=== PATIENT | female | born 1955 | race Caucasian/White ===

== ENCOUNTER → 2016-07-15 | Outpatient (REF) | payer BC ==
[2016-07-15 11:35] LABS: MEAN CORPUSCULAR HEMOGLOBIN 31.1 pg (27.0-33.0); MEAN CORPUSCULAR HGB CONC 33.9 g/dl (32.0-36.5); RED CELL DISTRIBUTION WIDTH 12.9 % (11.5-14.5); WHITE BLOOD COUNT 6.5 K/mm3 (4.0-10.0)
[2016-07-15 11:46] LABS: ALBUMIN 3.9 GM/DL (3.2-5.2); ALBUMIN/GLOBULIN RATIO 1.26 (1.00-1.93); ALKALINE PHOSPHATASE 114 U/L (45-117); ALT/SGPT 36 U/L (12-78); ANION GAP 5 MEQ/L (8-16); AST/SGOT 23 U/L (15-37); BILIRUBIN,TOTAL 0.3 MG/DL (0.2-1.0); BLOOD UREA NITROGEN 19 MG/DL (7-18); CALCIUM LEVEL 8.7 MG/DL (8.8-10.2); CARBON DIOXIDE LEVEL 32 MEQ/L (21-32); CHLORIDE LEVEL 106 MEQ/L (98-107); CHOLESTEROL LEVEL 157 MG/DL (<200); CREATININE FOR GFR 0.91 MG/DL (0.55-1.02); GLOMERULAR FILTRATION RATE > 60.0 (>45); GLUCOSE, FASTING 122 MG/DL (80-110); POTASSIUM SERUM 4.9 MEQ/L (3.5-5.1); SODIUM LEVEL 143 MEQ/L (136-145); TRIGLYCERIDES LEVEL 217 MG/DL (<150)
== END ==
LOC: M SFHCPLAZ 08:26
PROVIDERS: ATTEND Internal Medicine
DX: E78.00 Pure hypercholesterolemia, unspecified (principal); K21.9 Gastro-esophageal reflux disease without esophagitis; E11.9 Type 2 diabetes mellitus without complications; E03.9 Hypothyroidism, unspecified

== ENCOUNTER → 2016-07-22 | Outpatient (REF) | payer BC | LOC: M SFHCPLAZ 08:59 | PROVIDERS: ATTEND Internal Medicine | DX: E11.9 Type 2 diabetes mellitus without complications (principal) ==

== ENCOUNTER 2016-09-18 14:25 | Emergency (ER) | payer BC ==
[~2016-09-18] VITALS: Ht 162.6 cm; Wt 108.0 kg
[2016-09-18] MEDS ORDERED: TRAM50TA2 (14:42)
[2016-09-18] MEDS ORDERED: SERT-138 (14:42)
[2016-09-18] MEDS ORDERED: LEVO100T5 (14:42)
[2016-09-18] MEDS ORDERED: ATOR40TA (14:42)
[2016-09-18] MEDS ORDERED: BENA40TA2 (14:42)
[2016-09-18] MEDS ORDERED: PROA1AER (14:42)
[2016-09-18] MEDS ORDERED: AMIT75TA (14:42)
[2016-09-18] MEDS ORDERED: METO-346 (14:42)
[2016-09-18] MEDS ORDERED: IPRATROPIUM 0.5MG/ALBUTEROL 2.5MG INH SOL UD 3ML (DUONEB)(J7620) NEB ONE (15:45)
[2016-09-18 16:13] LABS: VENOUS BASE EXCESS 0.3 (-2.0-2.0); VENOUS O2 SATURATION 66.7 % (60.0-80.0); VENOUS PARTIAL PRESSURE CO2 51.5 mmHg (38.0-50.0); VENOUS PARTIAL PRESSURE O2 35.3 mmHg (30.0-50.0); VENOUS TOTAL CO2 28.6 MEQ/L (24.0-28.0)
[2016-09-18 16:14] LABS: BASO % 0.1 % (0.0-1.0); EOS # 0.1 K/mm3 (0.0-0.50); EOS % 1.5 % (0.0-3.0); LARGE UNSTAINED CELL # 0.1 K/mm3 (0.0-0.4); LARGE UNSTAINED CELL % 1.2 % (0.0-4.0); LYMPH # 0.6 K/mm3 (1.5-4.5); LYMPH % 10.3 % (24.0-44.0); MEAN CORPUSCULAR HEMOGLOBIN 31.5 pg (27.0-33.0); MEAN CORPUSCULAR HGB CONC 34.1 g/dl (32.0-36.5); MEAN CORPUSCULAR VOLUME 92.3 fl (80.0-96.0); MONO # 0.4 K/mm3 (0.0-0.8); MONO % 7.4 % (0.0-5.0); NEUTROPHILS # 3.8 K/mm3 (1.8-7.7); NEUTROPHILS % 79.4 % (36.0-66.0); PLATELET COUNT, AUTOMATED 188 k/mm3 (150-450); RED CELL DISTRIBUTION WIDTH 12.2 % (11.5-14.5); WHITE BLOOD COUNT 4.8 K/mm3 (4.0-10.0)
[2016-09-18 16:39] LABS: ANION GAP 9 MEQ/L (8-16); BLOOD UREA NITROGEN 15 MG/DL (7-18); CALCIUM LEVEL 8.8 MG/DL (8.8-10.2); CARBON DIOXIDE LEVEL 28 MEQ/L (21-32); CHLORIDE LEVEL 102 MEQ/L (98-107); CREATININE FOR GFR 0.84 MG/DL (0.55-1.02); GLOMERULAR FILTRATION RATE > 60.0 (>45); GLUCOSE, FASTING 117 MG/DL (80-110); SODIUM LEVEL 139 MEQ/L (136-145)
--- NOTE | 2016-09-18 16:49 | REP ---
Clinical: Chest pain . Comparison: 10/28/2010 . Technique: PA and lateral. Findings: The mediastinum and cardiac silhouette are normal. The lung akers are clear and without acute consolidation, effusion, or pneumothorax. The skeletal structures are intact and normal. Impression: 1. No acute cardiopulmonary process. Signed by Nba Meeks MD 09/18/2016 04:41 P
[2016-09-18] MEDS ORDERED: ISOVUE-370 76% 100ML VIAL (Q9967) As Ordered ONE (17:15)
[2016-09-18] MEDS ORDERED: ONDANSETRON 4MG/2ML VIAL (J2405) IV ONE (17:45)
[2016-09-18] MEDS ORDERED: ACETAMINOPHEN 325 MG TAB PO ONE (17:45)
--- NOTE | 2016-09-18 18:20 | REP ---
Clinical: Shortness of breath and elevated D-dimer. Technique: Axial contrast enhanced images from the thoracic inlet to the upper abdomen using 100 ml Isovue 370 intravenous contrast material with multiplanar re-formations. Findings: Satisfactory enhancement of the pulmonary vasculature is achieved and no filling defects are identified to suggest pulmonary embolus. Further evaluation of the mediastinum demonstrates a 6.6 x 3.2 x 5.0 cm anterior mediastinal mass. No further axillary, hilar, or mediastinal adenopathy noted. Heart/pericardium and thoracic aorta are normal. The bilateral lung akers are well aerated and clear without consolidation pleural effusion or pneumothorax. Tracheobronchial tree is patent. No pulmonary parenchymal nodule or mass lesion is identified. Surrounding musculoskeletal structures intact Impression: 1. No evidence for pulmonary embolus. No acute pleuroparenchymal process. 2. A 6 cm anterior mediastinal mass. Differential diagnosis includes thymoma, normal thymic tissue and lymphoma. Correlation and follow-up is recommended. Signed by Nba Meeks MD 09/18/2016 05:46 P
[2016-09-18 19:41] VITALS: BP 135/63
--- NOTE | 2016-09-19 20:52 | ECGEPIP ---
Stationary ECG Study [facility] - ED Test Date: 2016-09-18 Pat Name: SETH KIM Department: Room: - Gender: F Round Boner: robb : 1955 Requested By: Rosales Renee Order Number: [id number] Reading MD: Celnea Celeste Measurements Intervals [place] Rate: 93 P: 37 AK: 173 QRS: -18 QRSD: 146 T: 51 QT: 394 QTc: 492 Interpretive Statements SINUS RHYTHM LEFT BUNDLE BRANCH BLOCK NO PRIOR FOR COMPARISON Electronically Signed On 09-19-2016 20:51:39 EDT by Celena Celeste
--- NOTE | 2016-09-20 13:03 | ED PDOC ---
Post-Departure Follow-Up radiology report faxed to Celena Abrams MD Sep 20, 2016 13:03
== END 2016-09-18 19:30 | disposition home or self-care (01) ==
LOC: M ED 18:11
DX: J06.9 Acute upper respiratory infection, unspecified (principal); R22.2 Localized swelling, mass and lump, trunk; I44.7 Left bundle-branch block, unspecified; E03.9 Hypothyroidism, unspecified; I25.10 Atherosclerotic heart disease of native coronary artery without angina pectoris; E11.9 Type 2 diabetes mellitus without complications; E78.5 Hyperlipidemia, unspecified; I25.2 Old myocardial infarction; Z79.899 Other long term (current) drug therapy; Z87.891 Personal history of nicotine dependence; Z95.5 Presence of coronary angioplasty implant and graft
CPT/HCPCS: 71020; 71275; 80048; 82550; 82553; 82803; 83880; 85025; 85379; 93005; 93041; 94640; 96374; 99284; J2405; Q9967

== ENCOUNTER → 2016-10-08 | Outpatient (CLI) | payer BC ==
[~2016-10-08] MED LIST: AMIT75TA; ATOR40TA; BENA40TA2; LEVO100T5; METO-346; PROA1AER; SERT-138; TRAM50TA2
--- NOTE | 2016-10-08 12:21 | REPMRS ---
Patient History The patient states she has not had a clinical breast exam in over a year. No known family history of cancer. Digital Woman Screen Mammo: October 08, 2016 - Exam #: [id number] Bilateral CC and MLO view(s) were taken. Technologist: Bianca Gayle, Technologist Prior study comparison: May 13, 2014, bilateral bilat screen digital mammo, performed at [facility] ([facility]). April 23, 2013, bilateral bilat screen digital mammo, performed at [facility] ([facility]). FINDINGS: There are scattered fibroglandular densities. There has been no change in the appearance of the mammogram from the prior studies. There is a mild amount of residual fibroglandular tissue which is fairly symmetric. There is no interval development of dominant mass, architectural distortion, or clustered microcalcification suggestive of malignancy. ASSESSMENT: BI-RADS/ACR category 1 mammogram. Negative. Recommendation Routine screening mammogram in 1 year (for women over age 40). This mammogram was interpreted with the aid of an FDA-approved computer-aided dectection system. Electronically Signed By: Kevin Voss MD 10/08/16 [id number]
== END ==
LOC: M WHC 10:56
PROVIDERS: ATTEND Internal Medicine
DX: Z12.31 Encounter for screening mammogram for malignant neoplasm of breast (principal); E11.9 Type 2 diabetes mellitus without complications; M85.80 Other specified disorders of bone density and structure, unspecified site

== ENCOUNTER → 2016-10-16 | Outpatient (CLI) | payer BC ==
[~2016-10-16] MED LIST changes: -ATOR40TA; +ATOR40TA PO; -BENA40TA2; +BENA40TA2 PO; -LEVO100T5; +LEVO100T5 PO; -METO-346; +METO-346 PO; +SERT-138 PO; -TRAM50TA2; +TRAM50TA2 PO
[2016-10-16 13:05] LABS: MEAN CORPUSCULAR HEMOGLOBIN 30.9 pg (27.0-33.0); MEAN CORPUSCULAR HGB CONC 33.8 g/dl (32.0-36.5); MEAN CORPUSCULAR VOLUME 91.5 fl (80.0-96.0); RED CELL DISTRIBUTION WIDTH 12.6 % (11.5-14.5); WHITE BLOOD COUNT 6.6 K/mm3 (4.0-10.0)
[2016-10-16 13:08] LABS: CALCIUM OXALATE CRYSTALS SMALL; INR 0.96
[2016-10-16 13:49] LABS: ANION GAP 5 MEQ/L (8-16); BLOOD UREA NITROGEN 20 MG/DL (7-18); CALCIUM LEVEL 8.9 MG/DL (8.8-10.2); CARBON DIOXIDE LEVEL 31 MEQ/L (21-32); CHLORIDE LEVEL 103 MEQ/L (98-107); CREATININE FOR GFR 0.84 MG/DL (0.55-1.02); GLOMERULAR FILTRATION RATE > 60.0 (>45); GLUCOSE, FASTING 109 MG/DL (80-110); POTASSIUM SERUM 4.7 MEQ/L (3.5-5.1); SODIUM LEVEL 139 MEQ/L (136-145)
--- NOTE | 2016-10-16 16:00 | REP ---
Chest two views HISTORY: Mediastinal mass Comparison: 09/18/2016 The lungs are clear. The heart is normal in size. The pulmonary vasculature is normal in appearance. The bony structure is intact. IMPRESSION: No acute disease. Signed by Norman Ann MD 10/16/2016 03:52 P
--- NOTE | 2016-10-16 19:58 | ECGEPIP ---
Stationary ECG Study [facility] Test Date: 2016-10-16 Pat Name: SETH KIM Department: Room: - Gender: F Special Procedures Nurse: : 1955 Requested By: Kota Toney Order Number: [id number] Reading MD: Durga Taylor Measurements Intervals [place] Rate: 57 P: 2 MI: 221 QRS: -34 QRSD: 98 T: 20 QT: 415 QTc: 405 Interpretive Statements SINUS BRADYCARDIA WITH FIRST DEGREE AV BLOCK MARKED LEFT AXIS DEVIATION Previous tracing from 09-18-16 showed left bundle branch block POSSIBLE ANTERIOR MYOCARDIAL INFARCTION, OF INDETERMINATE AGE Nonspecific T wave abnormality Electronically Signed On 10-16-2016 19:58:37 EDT by Durga Taylor
== END ==
LOC: M ADMPAT 10:23
PROVIDERS: ATTEND Thoracic Surgery (Cardiothoracic Vascular Surgery)
DX: Z01.818 Encounter for other preprocedural examination (principal)

== ENCOUNTER → 2016-10-17 | Outpatient (CLI) | payer BC, MEDICARE ==
[2016-10-17 11:06] LABS: ABG BASE EXCESS -1.8 (-2.0-2.0); ABG HCO3 22.1 MEQ/L (22.0-26.0); ABG PARTIAL PRESSURE CO2 35.5 mmHg (35.0-45.0); ABG PARTIAL PRESSURE O2 74.9 mmHg (75.0-100.0); ABG STANDARD HCO3 22.9 MEQ/L (22.0-26.0); ABG TOTAL CO2 23.2 MEQ/L (23.0-31.0); ABG pH (ARTERIAL) 7.413 UNITS (7.350-7.450)
== END ==
LOC: M LAB 10:33
PROVIDERS: ATTEND Thoracic Surgery (Cardiothoracic Vascular Surgery)
DX: Z01.818 Encounter for other preprocedural examination (principal)

== ENCOUNTER 2016-10-22 08:02 | Inpatient (IN) | payer BC ==
[2016-10-16 11:31] VITALS: BP 110/72
[2016-10-22] VITALS (7 sets, daily range): BP systolic 96–118; BP diastolic 53–74; O2SAT 97
[~2016-10-22] VITALS: Ht 160 cm; Wt 104.9 kg
[2016-10-22] MEDS ORDERED: LR 1,000 ML IV SCH ×2 (08:15→14:45)
[2016-10-22] MEDS ORDERED: ceFAZolin SOD 1 GM in D5W MINI-BAG PLUS 50 ML IV ONE (08:45)
[2016-10-22] MEDS ORDERED: MUPIROCIN 2% OINT 22 GM TUBE TOP ONE (08:45)
[2016-10-22] MEDS ORDERED: PROPOFOL 200 MG/20 ML VIAL As Ordered ONE (09:02)
[2016-10-22] MEDS ORDERED: ONDANSETRON 4MG/2ML VIAL (J2405) As Ordered ONE (09:02)
[2016-10-22] MEDS ORDERED: LIDOCAINE 2% INJ 100 MG/5 ML SDV (FOR ANES.) As Ordered ONE (09:02)
[2016-10-22] MEDS ORDERED: ROCURONIUM BROMIDE 50 MG/5 ML VIAL As Ordered ONE ×2 (09:02→10:28)
[2016-10-22] MEDS ORDERED: MIDAZOLAM INJ 2 MG/2 ML VIAL (J2250) As Ordered ONE (09:04)
[2016-10-22] MEDS ORDERED: fentaNYL 100 MCG/2 ML INJECTION (J3010) As Ordered ONE ×4 (09:04→14:02)
[2016-10-22] MEDS ORDERED: BUPIVACAINE HCL 0.5% 30 ML VIAL As Ordered ONE (09:05)
[2016-10-22] MEDS ORDERED: BUPIVACAINE LIPOSOME/PF 1.3% 20 ML VIAL (13.3MG/ML)(EXPAREL) As Ordered ONE (09:06)
[2016-10-22] MEDS ORDERED: HEPARIN SOD (PORCINE) 5000 UNITS/ML VIAL As Ordered ONE (09:12)
[2016-10-22] MEDS ORDERED: ETOMIDATE INJ 20MG/10ML VIAL As Ordered ONE (09:14)
[2016-10-22] MEDS ORDERED: HYDROmorphone HCL 2 MG/ML 1ML VIAL (J1170) As Ordered ONE (10:31)
[2016-10-22] MEDS ORDERED: GLYCOPYRROLATE INJ 0.2 MG/ML 2 ML VIAL As Ordered ONE ×2 (10:36→13:08)
[2016-10-22] MEDS ORDERED: BACITRACIN PWD 50,000 UNITS VIAL As Ordered ONE (10:45)
[2016-10-22] MEDS ORDERED: VANCOMYCIN 1000 MG/20 ML VIAL (J3370) As Ordered ONE (10:49)
[2016-10-22] MEDS ORDERED: NEOSTIGMINE 1MG/ML 5 ML SYRINGE (J2710) As Ordered ONE (13:07)
[2016-10-22] MEDS ORDERED: NORCO, ANEXSIA 5/325MG TABLET (HYDROcodone/ACETAMINOPHEN) PO PRN (13:45)
[2016-10-22] MEDS ORDERED: BISACODYL 10 MG SUPP PR PRN (13:45)
[2016-10-22] MEDS ORDERED: LEVALBUTEROL 1.25 MG/0.5 ML CONCENTRATE NEB NEB PRN (13:45)
[2016-10-22] MEDS ORDERED: ONDANSETRON 4MG/2ML VIAL (J2405) IV PRN ×2 (13:45→14:45)
[2016-10-22] MEDS ORDERED: ACETAMINOPHEN TAB 650MG DOSE (2X325MG) PO PRN (13:45)
[2016-10-22] MEDS: LEVALBUTEROL 1.25 MG/0.5 ML CONCENTRATE NEB NEB SCH ×2 (14:00→20:10)
[2016-10-22] MEDS: fentaNYL 100 MCG/2 ML INJECTION (J3010) IV PRN ×4 (14:05→14:20)
[2016-10-22] MEDS ORDERED: SERT-138 PO (14:17)
[2016-10-22] MEDS ORDERED: AMIT75TA PO (14:17)
[2016-10-22] MEDS ORDERED: METO25TAB PO (14:17)
[2016-10-22] MEDS ORDERED: LEVO100T54 PO (14:17)
[2016-10-22] MEDS ORDERED: BENA40TA2 PO (14:17)
[2016-10-22] MEDS ORDERED: TRAM50TA2 PO (14:17)
[2016-10-22] MEDS ORDERED: ATOR40TA PO (14:17)
[2016-10-22] MEDS ORDERED: KCL 20MEQ IN D5/0.9%NACL 1000 ML As Ordered ONE (14:21)
[2016-10-22] MEDS ORDERED: KETOROLAC 30 MG/ML VIAL (J1885) As Ordered ONE (14:22)
[2016-10-22 14:23] LABS: ABG pH (ARTERIAL) 7.337 UNITS (7.350-7.450)
[2016-10-22 14:24] LABS: ABG BASE EXCESS -2.6 (-2.0-2.0); ABG HCO3 23.4 MEQ/L (22.0-26.0); ABG PARTIAL PRESSURE CO2 44.6 mmHg (35.0-45.0); ABG PARTIAL PRESSURE O2 73.5 mmHg (75.0-100.0); ABG TOTAL CO2 24.7 MEQ/L (23.0-31.0)
[2016-10-22 14:25] LABS: ABG STANDARD HCO3 22.3 MEQ/L (22.0-26.0)
[2016-10-22] MEDS: KETOROLAC 30 MG/ML VIAL (J1885) IV SCH ×2 (14:30→21:24)
[2016-10-22] MEDS ORDERED: KCL 20MEQ IN D5/NS 1000ML 1,000 ML IV SCH (14:30)
--- NOTE | 2016-10-22 14:44 | RO ---
DATE OF PROCEDURE: 10/22/2016 PREPROCEDURE DIAGNOSIS: Anterior mediastinal mass. POSTPROCEDURE DIAGNOSIS: Pathology pending, both cystic and solid. PROCEDURE: Excision of mediastinal mass. SURGEON: Kota Simmons MD TRIPLE VALVE TESTER: ANESTHESIA: FINDINGS: Most of the mass was cystic. Surprising is the Hounsfield units indicated that it was tissue. There was a solid component, almost a nodule, adjacent to the mass, which was removed in toto. The cyst was not entered and was delivered to pathology intact. PROCEDURE: Under satisfactory general anesthesia, the patient was prepped and draped in the usual sterile fashion and a hemisternotomy incision from the sternal notch to the third intercostal space was undertaken. The patient is very obese and the subcutaneous tissue and adipose tissue was incised to the outer table to the sternum. The sternal notch was identified and the sternal ligament was divided. The interspaces were counted and it was clear that there was a very small third interspace with the adjacent 4th rib having its cartilage ossified and encroaching into the intercostal space. Some of this was rongeured away and after ronguering that portion of the costal cartilage and creating a space for the saw, the sternum was divided up to the midway point through this interspace. The left internal mammary artery and vein were assiduously preserved. The remainder of the hemisternotomy was completed from the sternal notch down to the transverse cut in the sternum at the third intercostal space. Bone wax was applied and the sternal edge was cauterized. A chest retractor was placed and gently retracted. The innominate vein was identified and carefully dissected. Just below the innominate vein and a bit on top of it, there was a cystic mass. This was then dissected in a very tedious and slow fashion in order to release all of the adhesive bands from the mediastinum. Some of this tissue was densely adherent, others were not. The dissection was started at the superior portion to avoid the innominate vein. The inferior portion was then dissected towards the left and eventually the entire mass could be excised. The pleura was entered. There were two very hard nodules adjacent to the mass and these were taken out with the mass. The right side was then dissected in the same tedious and careful fashion in order to keep the cyst intact. Various techniques were used to control hemostasis and lymphatic drainage including the Harmonic scalpel and hemoclips. Finally, after delivering the mass to the back table, pictures were taken and the mass was sent for permanent tissue processing to pathology. As the pleura was entered, a chest tube was placed in the approximate fourth intercostal space just adjacent to the inframammary fold. It was a #20 tube and it was placed anteriorly. A ERIC drain was placed at the superior pole of the incision. Remainder of hemostasis was achieved and the sternum was closed with a figure-of-8 #5 wire and the inferior portion of the sternum that had been divided from the superior portion was also reapproximated by use of a simple #5 wire. The pectoralis muscles were reapproximated with #0 Vicryl sutures, the subcutaneous tissue by use of #3-0 suture and the skin by use of #3-0 Monocryl subcuticular suture. The patient tolerated the procedure well and left the operating room in satisfactory condition for the recovery room.
[2016-10-22] MEDS ORDERED: KETOROLAC 30 MG/ML VIAL (J1885) IV PRN (14:45)
[2016-10-22] MEDS ORDERED: MEPERIDINE INJ 25 MG/ML VIAL (J2175) IV PRN (14:45)
--- NOTE | 2016-10-22 14:45 | REP ---
CHEST: HISTORY: Postoperative. COMPARISON: 10/16/2016, a two view exam. The technique utilized in obtaining the radiograph has magnified the cardiac silhouette and accentuated the interstitial markings. The patient has undergone median sternotomy since the last exam. There is a left-sided thoracotomy tube, the tip in the apical region. There is no discernible pneumothorax on this portable exam. There is a tubular structure midline from T1 to just beyond the aortic knob. I am uncertain what this represents. It might represent a tracheostomy tube. The tube needs to be correlated clinically. There is a patchy opacity in the left lower lobe representing a change from the prior exam. There is no significant change in the appearance of the osseous structures. IMPRESSION: Tubes as described above. Median sternotomy since the last exam. Left lower lobe opacities, pneumonia versus subsegmental atelectatic change. Signed by Gonsalo Ingram DO 10/22/2016 03:02 P
[2016-10-22 14:48] LABS: BASO % 0.2 % (0.0-1.0); EOS # 0.1 K/mm3 (0.0-0.50); EOS % 0.8 % (0.0-3.0); LARGE UNSTAINED CELL # 0.2 K/mm3 (0.0-0.4); LARGE UNSTAINED CELL % 1.6 % (0.0-4.0); LYMPH # 2.9 K/mm3 (1.5-4.5); LYMPH % 26.9 % (24.0-44.0); MEAN CORPUSCULAR HEMOGLOBIN 31.6 pg (27.0-33.0); MEAN CORPUSCULAR HGB CONC 34.2 g/dl (32.0-36.5); MEAN CORPUSCULAR VOLUME 92.6 fl (80.0-96.0); MONO # 0.6 K/mm3 (0.0-0.8); MONO % 5.8 % (0.0-5.0); NEUTROPHILS # 6.9 K/mm3 (1.8-7.7); NEUTROPHILS % 64.8 % (36.0-66.0); PLATELET COUNT, AUTOMATED 200 k/mm3 (150-450); RED CELL DISTRIBUTION WIDTH 12.8 % (11.5-14.5); WHITE BLOOD COUNT 10.6 K/mm3 (4.0-10.0)
[2016-10-22] MEDS: PERCOCET 5MG/325MG TAB PO PRN ×3 (14:53→19:42)
[2016-10-22 15:13] LABS: ANION GAP 7 MEQ/L (8-16); BLOOD UREA NITROGEN 18 MG/DL (7-18); CALCIUM LEVEL 8.3 MG/DL (8.8-10.2); CARBON DIOXIDE LEVEL 27 MEQ/L (21-32); CHLORIDE LEVEL 103 MEQ/L (98-107); CREATININE FOR GFR 0.85 MG/DL (0.55-1.02); GLOMERULAR FILTRATION RATE > 60.0 (>45); GLUCOSE, FASTING 140 MG/DL (80-110); SODIUM LEVEL 137 MEQ/L (136-145)
[2016-10-22] MEDS: ATORVASTATIN 20 MG TAB PO SCH (17:51)
[2016-10-22] MEDS: ceFAZolin SOD 1 GM in D5W MINI-BAG PLUS 50 ML IV SCH (17:52)
[2016-10-22] MEDS ORDERED: METOPROLOL TART 25 MG TABLET PO SCH (21:00)
[2016-10-22] MEDS: AMITRIPTYLINE 25 MG TAB PO SCH (21:24)
[2016-10-22] MEDS: DOCUSATE SODIUM 100 MG CAP PO SCH (21:25)
[2016-10-22] MEDS: SERTRALINE 100 MG TAB PO SCH (21:25)
[2016-10-22] MEDS: HEPARIN SOD (PORCINE) 5000 UNITS/ML VIAL SC SCH (21:40)
--- NOTE | 2016-10-22 22:30 | REPUSA ---
CT of the chest without contrast Clinical statement: possible bleeding. Technique: Multiple axial CT images were obtained with 5 mm cuts through the chest without administra tion of contrast. No comparison is available. Findings: There is a chest tube in place in the left lung apex. Minimal subcutaneous emphysema is se en around the chest tube. There is also minimal emphysema in the anterior mediastinum. There is no th oracic lymphadenopathy. The visualized portions of the thyroid gland is unremarkable. There are no pe ricardial or pleural effusions. Minimal emphysematous changes are seen at the lung apices. There is l inear atelectasis in the left lower lobe with the left basilar atelectasis also appreciated. The righ t lung is clear. Limited imaging of the upper abdomen does not demonstrate any acute abnormalities. T here are no suspicious osseous lesions. Impression: 1. Left chest tube is in place at the left lung apex. No evidence of pneumothorax. Minimal surroundi ng subcutaneous emphysema is seen in the anterior chest wall. There is also minimal emphysema in the anterior mediastinum. 2. Linear atelectasis in the left lower lobe with left basilar atelectasis also appreciated. The righ t lung is clear. 3. Minimal emphysema in the lung apices bilaterally.
[2016-10-23] VITALS (17 sets, daily range): BP systolic 106–137; BP diastolic 51–68; O2SAT 91–98
[2016-10-23] MEDS: LEVALBUTEROL 1.25 MG/0.5 ML CONCENTRATE NEB NEB SCH ×4 (00:06→19:25)
[2016-10-23] MEDS: PERCOCET 5MG/325MG TAB PO PRN ×4 (00:20→23:52)
--- NOTE | 2016-10-23 00:42 | REP ---
Clinical: Hemorrhage. Comparison: 10/22/2016. Findings: A left-sided chest tube extends to the lung apex. Catheter overlies the mediastinum and neck. Possible drainage catheter overlies the right hemithorax. The patient is status post sternotomy. Cardiac silhouette is normal. Increased markings and prominent pulmonary vasculature may represent elements of interstitial edema along with perihilar and basilar atelectasis. No obvious effusion. No obvious pneumothorax. Impression: Lines and tubes as noted above. Scattered atelectasis and pulmonary interstitial edema cannot be excluded. Signed by Nba Meeks MD 10/23/2016 12:34 A
[2016-10-23] MEDS: KETOROLAC 30 MG/ML VIAL (J1885) IV SCH ×4 (02:00→20:52)
[2016-10-23] MEDS: ceFAZolin SOD 1 GM in D5W MINI-BAG PLUS 50 ML IV SCH ×2 (02:00→10:30)
[2016-10-23 05:42] LABS: BASO % 0.2 % (0.0-1.0); EOS # 0.1 K/mm3 (0.0-0.50); EOS % 1.3 % (0.0-3.0); LARGE UNSTAINED CELL # 0.1 K/mm3 (0.0-0.4); LARGE UNSTAINED CELL % 1.7 % (0.0-4.0); LYMPH # 1.4 K/mm3 (1.5-4.5); LYMPH % 19.5 % (24.0-44.0); MEAN CORPUSCULAR HEMOGLOBIN 30.7 pg (27.0-33.0); MEAN CORPUSCULAR HGB CONC 32.5 g/dl (32.0-36.5); MEAN CORPUSCULAR VOLUME 94.4 fl (80.0-96.0); MONO # 0.5 K/mm3 (0.0-0.8); MONO % 6.9 % (0.0-5.0); NEUTROPHILS # 4.6 K/mm3 (1.8-7.7); NEUTROPHILS % 70.4 % (36.0-66.0); PLATELET COUNT, AUTOMATED 167 k/mm3 (150-450); RED CELL DISTRIBUTION WIDTH 12.9 % (11.5-14.5); WHITE BLOOD COUNT 6.6 K/mm3 (4.0-10.0)
[2016-10-23] MEDS: LEVOTHYROXINE 0.1 MG TAB (100 MCG) PO SCH (05:55)
[2016-10-23 05:59] LABS: ABG BASE EXCESS 0.9 (-2.0-2.0); ABG HCO3 25.6 MEQ/L (22.0-26.0); ABG PARTIAL PRESSURE CO2 41.1 mmHg (35.0-45.0); ABG PARTIAL PRESSURE O2 98.8 mmHg (75.0-100.0); ABG STANDARD HCO3 25.3 MEQ/L (22.0-26.0); ABG TOTAL CO2 26.8 MEQ/L (23.0-31.0); ABG pH (ARTERIAL) 7.412 UNITS (7.350-7.450)
[2016-10-23 06:00] LABS: ANION GAP 6 MEQ/L (8-16); BLOOD UREA NITROGEN 13 MG/DL (7-18); CALCIUM LEVEL 7.7 MG/DL (8.8-10.2); CARBON DIOXIDE LEVEL 29 MEQ/L (21-32); CHLORIDE LEVEL 105 MEQ/L (98-107); CREATININE FOR GFR 0.79 MG/DL (0.55-1.02); GLOMERULAR FILTRATION RATE > 60.0 (>45); GLUCOSE, FASTING 125 MG/DL (80-110); POTASSIUM SERUM 3.9 MEQ/L (3.5-5.1); SODIUM LEVEL 140 MEQ/L (136-145)
[2016-10-23] MEDS: PANTOPRAZOLE 40MG INJ (PROTONIX) (C9113) IV SCH (08:44)
[2016-10-23] MEDS: DOCUSATE SODIUM 100 MG CAP PO SCH ×2 (08:47→20:49)
[2016-10-23] MEDS: HEPARIN SOD (PORCINE) 5000 UNITS/ML VIAL SC SCH ×2 (08:47→20:49)
[2016-10-23] MEDS: ATORVASTATIN 20 MG TAB PO SCH (08:47)
[2016-10-23] MEDS: METOPROLOL TART 25 MG TABLET PO SCH ×2 (09:00→20:50)
[2016-10-23] MEDS ORDERED: PANTOPRAZOLE 40MG TAB (PROTONIX) PO SCH (09:00)
[2016-10-23] MEDS: BENAZEPRIL 20 MG TAB PO SCH (09:00)
[2016-10-23] MEDS ORDERED: SLF 3 ML SYR IV PRN (09:00)
[2016-10-23] MEDS: MOM 30ML SUSPENSION UDC PO SCH (09:00)
[2016-10-23] MEDS ORDERED: BENAZEPRIL 20 MG TAB PO SCH (09:00)
--- NOTE | 2016-10-23 09:34 | REP ---
CHEST, TWO VIEWS: HISTORY: Mediastinal mass removal. COMPARISON: 10/22/2016. Increased density is present in the left lower lobe consistent with atelectasis or infiltrate. The right lung is clear. The heart is normal in size. The pulmonary vasculature is normal in appearance. The bony structure is intact. A chest tube is present in the left hemithorax. There is no pneumothorax. A drainage tube is present in the anterior mediastinum. IMPRESSION: 1. Left lower lobe atelectasis or infiltrate. 2. There is no pneumothorax. A left chest tube is present. Signed by Norman Ann MD 10/23/2016 09:35 A
[2016-10-23] MEDS ORDERED: D5/0.9%NACL 1000ML IV ONE (10:00)
--- NOTE | 2016-10-23 10:34 | IPN ---
DATE: 10/23/2016 This is the first postoperative day for Mrs. Infante. Last night, her blood pressure went down to the high 90s. There was slightly increased output from the ERIC and I therefore obtained a chest x-ray which showed a diffuse haze on the left side. I was concerned that the diffuse haze might have representing bleeding and therefore got CT scan which showed a clear pleural space. Her hemoglobin and hematocrit was stable. Today she is not complaining of any incisional pain. There is no air leak. Her vital signs show T-max of 99.1 with a heart rate that ranges between 90 and 75 in a sinus rhythm, respiratory rate of 18 to 20 without the use of accessory muscles who is 94 to 98% saturated on 2 liters nasal cannula. Blood pressures ranging between 121/60 to 96/60. Her intake and output for the past 24 hours has been recorded as 2175 in and 1915 out for a positivity of 260 mL. She has put 235 mL out the ERIC drain and 5 mL out the chest tube. There is no air leak. Weight today is 103.1 kg compared to 102 kg yesterday. On physical examination, her lungs show normal vesicular sounds equal on either side. Percussion note is full to the diaphragm. Cardiac exam is without murmurs, clicks, gallops or rubs. I cannot feel her PMI. S1 and S2 are normal. Abdomen is soft, nontender, bowel sounds are positive. There is no hepatomegaly. No CVA tenderness. Extremities show no pretibial edema. No calf tenderness. No differential swelling of the upper extremities. Skin is warm, dry and perfused without cyanosis or mottling including that of the nail beds and knees. Neck is supple. There is no jugular venous distention. No subcutaneous emphysema. Trachea is midline. Mouth shows her mucous membranes to be pink and moist. Lips and commissures are without lesions. No thrush. Eyes show her pupils to be equal and reactive. Extraocular motor intact. Sclera anicteric. Neuro shows II through XII intact with gross motor and gross sensation intact. Gait is not tested. Psychiatric shows her to be awake and alert, oriented times three with appropriate mood and affect and conversational. Her white count today is 6.6 with hemoglobin and hematocrit of 11.4 and 35.0 which is stable from last night. Platelet count is 167 and stable and differential shows 70% neutrophils, 19% lymphocytes, 7% monocytes. There are no immature forms. No toxic granulations. Electrolytes are normal with a BUN and creatinine of 13 and 0.79, glucose of 125 and a calcium of 7.7. She remains on Toradol. Blood gases today show a pH of 7.41, pCO2 of 41, pO2 of 98 with a base excess of 0.9. Chest x-ray today shows her lungs fully expanded to the chest wall. There is no subcutaneous emphysema. The lucencies in the lung are equal and there is no evidence of a diffuse haze as I saw last night on the portable chest x-ray. Costophrenic angles are sharp. Mediastinum is in the midline and is not widened. I have gone over the slides with Dr. Garces of pathology. This looks to be a classic thymic cyst. There is a little bit of architecture which might be reminiscent of an incipient thymoma but that is quite equivocal. IMPRESSION: 1. Thymic cyst. 2. Hypertension now with transient hypotension. 3. Chronic back pain. 4. Hypothyroidism. PLAN AND DISCUSSION: I will remove her chest tube today. I will continue the Romario-Almanzar. Will discontinue the Saxena. I will give her a volume bolus of normal saline.
[2016-10-23] MEDS: SLF 3 ML SYR IV SCH ×2 (13:46→20:52)
[2016-10-23] MEDS: AMITRIPTYLINE 25 MG TAB PO SCH (20:49)
[2016-10-23] MEDS: SERTRALINE 100 MG TAB PO SCH (20:50)
[2016-10-24] VITALS (13 sets, daily range): BP systolic 109–131; BP diastolic 58–66; O2SAT 90–94
[2016-10-24] MEDS: LEVALBUTEROL 1.25 MG/0.5 ML CONCENTRATE NEB NEB SCH ×3 (02:08→13:26)
[2016-10-24] MEDS: KETOROLAC 30 MG/ML VIAL (J1885) IV SCH ×2 (03:43→08:13)
[2016-10-24 05:50] LABS: BASO % 0.2 % (0.0-1.0); EOS # 0.1 K/mm3 (0.0-0.50); EOS % 1.3 % (0.0-3.0); LARGE UNSTAINED CELL # 0.1 K/mm3 (0.0-0.4); LARGE UNSTAINED CELL % 1.1 % (0.0-4.0); LYMPH # 1.1 K/mm3 (1.5-4.5); MEAN CORPUSCULAR HEMOGLOBIN 30.8 pg (27.0-33.0); MEAN CORPUSCULAR HGB CONC 33.2 g/dl (32.0-36.5); MEAN CORPUSCULAR VOLUME 92.5 fl (80.0-96.0); MONO # 0.4 K/mm3 (0.0-0.8); MONO % 6.1 % (0.0-5.0); NEUTROPHILS # 5.2 K/mm3 (1.8-7.7); NEUTROPHILS % 76.3 % (36.0-66.0); PLATELET COUNT, AUTOMATED 178 k/mm3 (150-450); RED CELL DISTRIBUTION WIDTH 12.8 % (11.5-14.5); WHITE BLOOD COUNT 6.8 K/mm3 (4.0-10.0)
[2016-10-24 05:58] LABS: ANION GAP 7 MEQ/L (8-16); BLOOD UREA NITROGEN 15 MG/DL (7-18); CALCIUM LEVEL 8.3 MG/DL (8.8-10.2); CARBON DIOXIDE LEVEL 28 MEQ/L (21-32); CHLORIDE LEVEL 107 MEQ/L (98-107); CREATININE FOR GFR 0.75 MG/DL (0.55-1.02); GLOMERULAR FILTRATION RATE > 60.0 (>45); GLUCOSE, FASTING 128 MG/DL (80-110); SODIUM LEVEL 142 MEQ/L (136-145)
[2016-10-24] MEDS: LEVOTHYROXINE 0.1 MG TAB (100 MCG) PO SCH (06:08)
[2016-10-24] MEDS: SLF 3 ML SYR IV SCH (06:08)
[2016-10-24] MEDS: DOCUSATE SODIUM 100 MG CAP PO SCH (08:11)
[2016-10-24] MEDS: ATORVASTATIN 20 MG TAB PO SCH (08:11)
[2016-10-24] MEDS: BENAZEPRIL 20 MG TAB PO SCH (08:12)
[2016-10-24] MEDS: METOPROLOL TART 25 MG TABLET PO SCH (08:12)
[2016-10-24] MEDS: PANTOPRAZOLE 40MG INJ (PROTONIX) (C9113) IV SCH (08:13)
[2016-10-24] MEDS: PERCOCET 5MG/325MG TAB PO PRN (08:14)
[2016-10-24] MEDS: HEPARIN SOD (PORCINE) 5000 UNITS/ML VIAL SC SCH (08:14)
[2016-10-24] MEDS: MOM 30ML SUSPENSION UDC PO SCH (08:14)
--- NOTE | 2016-10-24 08:54 | REP ---
PA and lateral chest: A comparison is 10/23/2016. There is bibasilar atelectasis. Lung akers otherwise clear. Cardiac size is normal. The previous thoracotomy tube has been removed. There is tubing superimposed over the mediastinum, unchanged. Sternotomy wires are again noted. There is a cervical spine stabilization plate, unchanged. Signed by Kevin Barrow MD 10/24/2016 08:46 A
--- NOTE | 2016-10-25 08:12 | DSES ---
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 OTHER DIAGNOSES: 1. Depression. 2. Hypercholesterolemia. 3. Hyperthyroidism. 4. Hypertension. 5. Chronic back pain. HOSPITAL COURSE: Patient is a 61-year-old white female who was found to have a 6 cm anterior mediastinal mass as an incidental finding on a chest CT when she was evaluated for chest pain for a pulmonary embolism. Because of the presence of the mediastinal mass, she was taken to the operating room for excision. Excision was accomplished through a hemisternotomy. Patient had benign postoperative course with the drain being removed on the second postoperative day and the chest tube being removed on the first postoperative day. The patient is being discharged home today with hemoglobin and hematocrit of 11.6 and 34.7 and normal electrolytes with BUN and creatinine of 15 and 0.75. Her chest x-ray shows her lung fully expanded to the chest wall and there is no widening of the mediastinum. She is being discharged on her home medications which include amitriptyline 75 mg daily at bedtime, atorvastatin 40 mg daily at bedtime, benazepril 40 mg daily, Synthroid 100 mcg daily, metoprolol 25 mg twice daily, Sertraline 200 mg daily at bedtime and tramadol 50 mg by mouth three times daily as needed back pain. I will see her back in the office in 7-10 days in postoperative followup.
== END 2016-10-24 14:19 | disposition home or self-care (01) | DRG 651 ==
LOC: M OR 08:02 → M PCU 15:49
PROVIDERS: ADMIT Thoracic Surgery (Cardiothoracic Vascular Surgery); ATTEND Thoracic Surgery (Cardiothoracic Vascular Surgery)
PROC: 0WH Anatomical Regions, General, Insertion (ICD-10-PCS; 2016-10-22)
PROC: 0WBC0ZX Excision of Mediastinum, Open Approach, Diagnostic (ICD-10-PCS; principal; 2016-10-22 09:45)
DX: D15.0 Benign neoplasm of thymus (principal); Z68.41 Body mass index [BMI] 40.0-44.9, adult; I10 Essential (primary) hypertension; E66.9 Obesity, unspecified; E03.9 Hypothyroidism, unspecified; E78.00 Pure hypercholesterolemia, unspecified; M54.9 Dorsalgia, unspecified; F32.9 Major depressive disorder, single episode, unspecified; Z79.899 Other long term (current) drug therapy

== ENCOUNTER → 2016-11-04 | Outpatient (CLI) | payer BC ==
[~2016-11-04] MED LIST changes: +AMIT75TA PO; +LEVO100T54 PO; +METO25TAB PO
--- NOTE | 2016-11-05 02:54 | REP ---
Clinical: Neoplasm. Technique: PA and lateral. Comparison: 10/24/2016. Findings: Mediastinum and cardiac silhouette are stable. The patient is status post cervical fusion and prior sternotomy. Mild bibasilar fibroatelectatic changes appear improved compared to prior examination. No focal consolidation, effusion, or pneumothorax. Skeletal structures stable. Impression: Mild bibasilar fibroatelectatic changes appear improved Signed by Nba Meeks MD 11/05/2016 02:46 A
== END ==
LOC: M SMT 08:18
PROVIDERS: ATTEND Thoracic Surgery (Cardiothoracic Vascular Surgery)
DX: D38.3 Neoplasm of uncertain behavior of mediastinum (principal)

== ENCOUNTER → 2017-03-20 | Outpatient (CLI) | payer BC ==
[~2017-03-20] MED LIST changes: -ATOR40TA PO; +ATOR40TA75 PO; -BENA40TA2 PO; +BENA40TA7 PO; +METO25TA4 PO; -METO25TAB PO; -PROA1AER; +PROAAER10
--- NOTE | 2017-04-03 09:59 | DEXA ---
AP SPINE L1 - L4 1.367 1.4 2.9 LT FEMUR TOTAL 1.011 0.0 1.2 RT FEMUR TOTAL 1.093 0.7 1.8 TOTAL BODY TOTAL OTHER % COMMENTS: Normal bone densitometry of the spine. There is low bone density of the hips. The density of the spine has increased 5.9% since the initial exam on 2003. The spine density has increased 14.8% since the most recent exam on 10/18/2010. The density of the left hip has increased 7.4% since the initial exam on 2003. The density of the left hip has increased 3.1% since the most recent exam on . The density of the right hip has increased 7.8% since the initial exam on 2003. The density of the right hip has increased 5.0% since the most recent exam on . FOLLOW-UP: Recommendation for the next bone density exam: 2 years. JUS
== END ==
LOC: M WHC 13:32
PROVIDERS: ATTEND Internal Medicine
DX: M85.80 Other specified disorders of bone density and structure, unspecified site (principal)

== ENCOUNTER → 2017-03-20 | Outpatient (REF) | payer BC ==
[2017-03-20 12:53] LABS: ALBUMIN 3.6 GM/DL (3.2-5.2); ALBUMIN/GLOBULIN RATIO 1.03 (1.00-1.93); ALKALINE PHOSPHATASE 118 U/L (45-117); ALT/SGPT 35 U/L (12-78); ANION GAP 8 MEQ/L (8-16); AST/SGOT 26 U/L (15-37); BILIRUBIN,TOTAL 0.4 MG/DL (0.2-1.0); BLOOD UREA NITROGEN 16 MG/DL (7-18); CALCIUM LEVEL 8.6 MG/DL (8.8-10.2); CARBON DIOXIDE LEVEL 29 MEQ/L (21-32); CHLORIDE LEVEL 104 MEQ/L (98-107); CREATININE FOR GFR 0.83 MG/DL (0.55-1.02); GLOMERULAR FILTRATION RATE > 60.0 (>45); GLUCOSE, FASTING 137 MG/DL (80-110); POTASSIUM SERUM 4.4 MEQ/L (3.5-5.1); SODIUM LEVEL 141 MEQ/L (136-145); TOTAL PROTEIN 7.1 GM/DL (6.4-8.2)
== END ==
LOC: M SFHCPLAZ 08:34
PROVIDERS: ATTEND Internal Medicine
DX: E11.9 Type 2 diabetes mellitus without complications (principal)

== ENCOUNTER → 2017-09-15 | Outpatient (REF) | payer BC ==
[2017-09-15 12:27] LABS: HEMATOCRIT 38.2 % (36.0-47.0); HEMOGLOBIN 12.4 g/dl (12.0-16.0); MEAN CORPUSCULAR HEMOGLOBIN 30.8 pg (27.0-33.0); MEAN CORPUSCULAR HGB CONC 32.5 g/dl (32.0-36.5); PLATELET COUNT, AUTOMATED 205 10^3/uL (150-450); RED BLOOD COUNT 4.02 10^6/uL (4.00-5.40); RED CELL DISTRIBUTION WIDTH 12.2 % (11.5-14.5)
[2017-09-15 12:28] LABS: TOTAL 25(OH) VITAMIN D 30.9 NG/ML (30.0-100.0)
[2017-09-15 12:39] LABS: ESTIMATED AVERAGE GLUCOSE 151 MG/DL (60-110); HEMOGLOBIN A1c 6.9 %
[2017-09-15 12:47] LABS: ALBUMIN 3.7 GM/DL (3.2-5.2); ALBUMIN/GLOBULIN RATIO 1.03 (1.00-1.93); ALKALINE PHOSPHATASE 122 U/L (45-117); ALT/SGPT 31 U/L (12-78); ANION GAP 11 MEQ/L (8-16); AST/SGOT 20 U/L (7-37); BILIRUBIN,TOTAL 0.3 MG/DL (0.2-1.0); BLOOD UREA NITROGEN 18 MG/DL (7-18); CALCIUM LEVEL 8.5 MG/DL (8.8-10.2); CARBON DIOXIDE LEVEL 25 MEQ/L (21-32); CHLORIDE LEVEL 105 MEQ/L (98-107); CHOLESTEROL LEVEL 148 MG/DL (<200); CREATININE FOR GFR 0.91 MG/DL (0.55-1.30); GLOMERULAR FILTRATION RATE > 60.0 (>45); GLUCOSE, FASTING 119 MG/DL (70-100); HDL CHOLESTEROL 37 MG/DL (>40); LDL CHOLESTEROL 68.8 MG/DL (<100); MAGNESIUM LEVEL 2.1 MG/DL (1.8-2.4); NON-HDL-C 111 MG/DL; POTASSIUM SERUM 4.2 MEQ/L (3.5-5.1); SODIUM LEVEL 141 MEQ/L (136-145); TOTAL PROTEIN 7.3 GM/DL (6.4-8.2); TRIGLYCERIDES LEVEL 211 MG/DL (<150)
[2017-09-15 12:54] LABS: MALB URINE SIEMENS 88.4 MG/L; MAU/CREAT RATIO 60.5 MCG/MG (0.0-30.0)
== END ==
LOC: M SFHCPLAZ 08:16
DX: G47.33 Obstructive sleep apnea (adult) (pediatric) (principal); I10 Essential (primary) hypertension; E11.9 Type 2 diabetes mellitus without complications; E78.00 Pure hypercholesterolemia, unspecified; E03.9 Hypothyroidism, unspecified; E55.9 Vitamin D deficiency, unspecified
CPT/HCPCS: 83735

== ENCOUNTER → 2017-09-29 | Outpatient (CLI) | payer BC ==
[~2017-09-29] MED LIST changes: -AMIT75TA; -AMIT75TA PO; -ATOR40TA75 PO; -BENA40TA7 PO; +ISOVUE-370 76% 100ML VIAL (Q9967) As Ordered; -LEVO100T5 PO; -LEVO100T54 PO; -METO-346 PO; -METO25TA4 PO; -PROAAER10; -SERT-138; -SERT-138 PO; -TRAM50TA2 PO
== END ==
LOC: M RAD 13:39
DX: R07.89 Other chest pain (principal); K76.0 Fatty (change of) liver, not elsewhere classified; Z98.890 Other specified postprocedural states
CPT/HCPCS: Q9967

== ENCOUNTER 2018-01-19 00:17 | Emergency (ER) | payer BC, MEDICARE ==
[2018-01-19 01:11] LABS: BASO % 0.3 % (0.0-1.0); EOS # 0.1 10^3/uL (0.0-0.50); EOS % 1.3 % (0.0-3.0); HEMATOCRIT 38.8 % (36.0-47.0); IMMATURE GRANULOCYTE % 0.5 % (0-3.0); LYMPH # 2.4 10^3/uL (1.5-4.5); LYMPH % 32.5 % (24.0-44.0); MEAN CORPUSCULAR HEMOGLOBIN 31.3 pg (27.0-33.0); MEAN CORPUSCULAR HGB CONC 33.5 g/dl (32.0-36.5); MEAN CORPUSCULAR VOLUME 93.3 fl (80.0-96.0); MONO # 0.8 10^3/uL (0.0-0.8); MONO % 10.3 % (0.0-5.0); NEUTROPHILS # 4.1 10^3/uL (1.8-7.7); NEUTROPHILS % 55.1 % (36.0-66.0); PLATELET COUNT, AUTOMATED 207 10^3/uL (150-450); RED BLOOD COUNT 4.16 10^6/uL (4.00-5.40); RED CELL DISTRIBUTION WIDTH 12.4 % (11.5-14.5); WHITE BLOOD COUNT 7.5 10^3/uL (4.0-10.0)
[2018-01-19 01:34] LABS: ANION GAP 10 MEQ/L (8-16); BLOOD UREA NITROGEN 19 MG/DL (7-18); CALCIUM LEVEL 8.6 MG/DL (8.8-10.2); CARBON DIOXIDE LEVEL 26 MEQ/L (21-32); CHLORIDE LEVEL 104 MEQ/L (98-107); CPK CREATINE PHOSPHOKINASE 146 U/L (26-192); CREATININE FOR GFR 0.92 MG/DL (0.55-1.30); GLOMERULAR FILTRATION RATE > 60.0 (>45); GLUCOSE, FASTING 160 MG/DL (70-100); POTASSIUM SERUM 4.2 MEQ/L (3.5-5.1); SODIUM LEVEL 140 MEQ/L (136-145); TROPONIN I < 0.02 NG/ML (< 0.10)
[2018-01-19 01:35] LABS: CK-MB VALUE MASS 1.9 NG/ML (<3.6)
[2018-01-19 01:37] LABS: ERYTHROCYTE SEDIMENTATION RATE 37 mm/hr (0-30)
[2018-01-19] MEDS: dexameTHASONE 20 MG/5 ML VIAL (J1100) IV (02:24)
[2018-01-19] MEDS: KETOROLAC 30 MG/ML VIAL (J1885) IV (02:24)
[2018-01-19] MEDS: MORPHINE 2 MG/ML 1ML SYRINGE (J2270) IV (02:24)
== END 2018-01-19 03:35 | disposition home or self-care (01) ==
LOC: M ED 00:17
DX: M26.623 Arthralgia of bilateral temporomandibular joint (principal); M26.69 Other specified disorders of temporomandibular joint; I25.10 Atherosclerotic heart disease of native coronary artery without angina pectoris; I11.9 Hypertensive heart disease without heart failure; E11.9 Type 2 diabetes mellitus without complications; J45.909 Unspecified asthma, uncomplicated; E78.5 Hyperlipidemia, unspecified; F32.9 Major depressive disorder, single episode, unspecified; Z95.5 Presence of coronary angioplasty implant and graft; Z91.040 Latex allergy status; Z79.899 Other long term (current) drug therapy; Z79.82 Long term (current) use of aspirin; Z79.84 Long term (current) use of oral hypoglycemic drugs
CPT/HCPCS: J1100

== ENCOUNTER → 2018-01-21 | Outpatient (REF) | payer BC ==
[2018-01-21 12:43] LABS: ALBUMIN 3.7 GM/DL (3.2-5.2); ALBUMIN/GLOBULIN RATIO 1.06 (1.00-1.93); ALKALINE PHOSPHATASE 105 U/L (45-117); ALT/SGPT 37 U/L (12-78); ANION GAP 7 MEQ/L (8-16); AST/SGOT 23 U/L (7-37); BILIRUBIN,TOTAL 0.3 MG/DL (0.2-1.0); BLOOD UREA NITROGEN 24 MG/DL (7-18); CALCIUM LEVEL 8.3 MG/DL (8.8-10.2); CARBON DIOXIDE LEVEL 29 MEQ/L (21-32); CHLORIDE LEVEL 105 MEQ/L (98-107); CHOLESTEROL LEVEL 156 MG/DL (<200); CHOLESTEROL RISK RATIO 4.105 (<5); CREATININE FOR GFR 0.98 MG/DL (0.55-1.30); GLOMERULAR FILTRATION RATE > 60.0 (>45); GLUCOSE, FASTING 114 MG/DL (70-100); HDL CHOLESTEROL 38 MG/DL (>40); LDL CHOLESTEROL 55.2 MG/DL (<100); NON-HDL-C 118 MG/DL; POTASSIUM SERUM 4.2 MEQ/L (3.5-5.1); SODIUM LEVEL 141 MEQ/L (136-145); TOTAL PROTEIN 7.2 GM/DL (6.4-8.2); TRIGLYCERIDES LEVEL 314 MG/DL (<150)
[2018-01-21 13:28] LABS: ESTIMATED AVERAGE GLUCOSE 160 MG/DL (60-110); HEMOGLOBIN A1c 7.2 %
[2018-01-21 13:33] LABS: MALB URINE SIEMENS 12.7 MG/L
== END ==
LOC: M SFHCPLAZ 08:30
DX: I10 Essential (primary) hypertension (principal); E11.9 Type 2 diabetes mellitus without complications; E78.00 Pure hypercholesterolemia, unspecified

== ENCOUNTER → 2018-07-09 | Outpatient (REF) | payer BC, MEDICARE ==
[~2018-07-09] MED LIST changes: +AMIT75TA; +AMIT75TA PO; +ASPI81TA85 PO; +ATOR40TA75 PO; +BENA40TA7 PO; -ISOVUE-370 76% 100ML VIAL (Q9967) As Ordered; +JANU100T PO; +LEVO100T5 PO; +LEVO100T54 PO; +METO-346 PO; +METO25TA4 PO; +PROAAER10; +PROAAER10 INH; +SERT-138; +SERT-138 PO; +TRAM50TA2 PO
[2018-07-09 11:37] LABS: HEMATOCRIT 39.9 % (36.0-47.0); HEMOGLOBIN 13.1 g/dl (12.0-15.5); MEAN CORPUSCULAR HEMOGLOBIN 30.7 pg (27.0-33.0); MEAN CORPUSCULAR HGB CONC 32.8 g/dl (32.0-36.5); MEAN CORPUSCULAR VOLUME 93.4 fl (80.0-96.0); PLATELET COUNT, AUTOMATED 220 10^3/uL (150-450); RED BLOOD COUNT 4.27 10^6/uL (4.00-5.40); WHITE BLOOD COUNT 6.2 10^3/uL (4.0-10.0)
[2018-07-09 11:52] LABS: ALT/SGPT 37 U/L (12-78); BILIRUBIN,TOTAL 0.4 MG/DL (0.2-1.0); BLOOD UREA NITROGEN 19 MG/DL (7-18); CALCIUM LEVEL 8.8 MG/DL (8.8-10.2); CARBON DIOXIDE LEVEL 28 MEQ/L (21-32); CHLORIDE LEVEL 103 MEQ/L (98-107); CHOLESTEROL LEVEL 149 MG/DL (<200); CHOLESTEROL RISK RATIO 4.138 (<5); CREATININE FOR GFR 0.89 MG/DL (0.55-1.30); GLOMERULAR FILTRATION RATE > 60.0 (>45); GLUCOSE, FASTING 130 MG/DL (70-100); HDL CHOLESTEROL 36 MG/DL (>40); LDL CHOLESTEROL 59 MG/DL (<100); MAGNESIUM LEVEL 2.1 MG/DL (1.8-2.4); NON-HDL-C 113 MG/DL; POTASSIUM SERUM 4.5 MEQ/L (3.5-5.1); SODIUM LEVEL 137 MEQ/L (136-145); TOTAL PROTEIN 7.4 GM/DL (6.4-8.2); TRIGLYCERIDES LEVEL 270 MG/DL (<150)
[2018-07-09 12:34] LABS: HEMOGLOBIN A1c 7.5 %
== END ==
LOC: M SFHCPLAZ 09:00
PROVIDERS: ATTEND Internal Medicine
DX: G47.33 Obstructive sleep apnea (adult) (pediatric) (principal); I10 Essential (primary) hypertension; E11.9 Type 2 diabetes mellitus without complications; E78.00 Pure hypercholesterolemia, unspecified; E03.9 Hypothyroidism, unspecified

== ENCOUNTER → 2019-01-19 | Outpatient (REF) | payer BC, MEDICARE ==
[2019-01-19 10:39] LABS: HEMOGLOBIN A1c 7.1 %
[2019-01-19 10:48] LABS: ALBUMIN 3.7 GM/DL (3.2-5.2); ALT/SGPT 31 U/L (12-78); BILIRUBIN,TOTAL 0.3 MG/DL (0.2-1.0); BLOOD UREA NITROGEN 20 MG/DL (7-18); CALCIUM LEVEL 8.7 MG/DL (8.8-10.2); CARBON DIOXIDE LEVEL 28 MEQ/L (21-32); CHLORIDE LEVEL 108 MEQ/L (98-107); CHOLESTEROL LEVEL 153 MG/DL (<200); CREATININE FOR GFR 0.84 MG/DL (0.55-1.30); GLOMERULAR FILTRATION RATE > 60.0 (>45); GLUCOSE, FASTING 136 MG/DL (70-100); HDL CHOLESTEROL 36 MG/DL (>40); LDL CHOLESTEROL 57 MG/DL (<100); NON-HDL-C 117 MG/DL; POTASSIUM SERUM 4.5 MEQ/L (3.5-5.1); SODIUM LEVEL 141 MEQ/L (136-145); TOTAL PROTEIN 7.2 GM/DL (6.4-8.2); TRIGLYCERIDES LEVEL 301 MG/DL (<150)
[2019-01-19 10:54] LABS: TOTAL 25(OH) VITAMIN D 32.7 NG/ML (30.0-100.0)
== END ==
LOC: M SFHCPLAZ 08:25
PROVIDERS: ATTEND Internal Medicine
DX: I10 Essential (primary) hypertension (principal); E11.9 Type 2 diabetes mellitus without complications; E78.00 Pure hypercholesterolemia, unspecified; E55.9 Vitamin D deficiency, unspecified

== ENCOUNTER → 2019-04-22 | Outpatient (CLI) | payer BC, MEDICARE ==
[2019-04-22 11:16] LABS: BASO % 0.3 % (0.0-1.0); EOS # 0.1 10^3/uL (0.0-0.5); EOS % 0.8 % (0.0-3.0); HEMATOCRIT 42.9 % (36.0-47.0); HEMOGLOBIN 14.2 g/dl (12.0-15.5); LYMPH # 2.4 10^3/uL (1.5-5.0); LYMPH % 32.6 % (24.0-44.0); MEAN CORPUSCULAR HEMOGLOBIN 31.2 pg (27.0-33.0); MEAN CORPUSCULAR HGB CONC 33.1 g/dl (32.0-36.5); MEAN CORPUSCULAR VOLUME 94.3 fl (80.0-96.0); MONO # 0.7 10^3/uL (0.0-0.8); MONO % 9.7 % (0.0-5.0); NEUTROPHILS # 4.2 10^3/uL (1.5-8.5); NEUTROPHILS % 56.5 % (36.0-66.0); PLATELET COUNT, AUTOMATED 244 10^3/uL (150-450); RED BLOOD COUNT 4.55 10^6/uL (4.00-5.40); WHITE BLOOD COUNT 7.3 10^3/uL (4.0-10.0)
[2019-04-22 11:56] LABS: ALBUMIN 3.9 GM/DL (3.2-5.2); ALT/SGPT 33 U/L (12-78); AMYLASE 65 U/L (25-115); BILIRUBIN,TOTAL 0.4 MG/DL (0.2-1.0); BLOOD UREA NITROGEN 18 MG/DL (7-18); CALCIUM LEVEL 9.6 MG/DL (8.8-10.2); CARBON DIOXIDE LEVEL 31 MEQ/L (21-32); CHLORIDE LEVEL 107 MEQ/L (98-107); CREATININE FOR GFR 0.78 MG/DL (0.55-1.30); GLOMERULAR FILTRATION RATE > 60.0 (>45); GLUCOSE, FASTING 76 MG/DL (70-100); LIPASE 235 U/L (73-393); POTASSIUM SERUM 4.3 MEQ/L (3.5-5.1); SODIUM LEVEL 142 MEQ/L (136-145); TOTAL PROTEIN 7.3 GM/DL (6.4-8.2)
== END ==
LOC: M LAB 10:46
PROVIDERS: ATTEND Physician Assistant Medical
DX: R19.5 Other fecal abnormalities (principal); R10.13 Epigastric pain

== ENCOUNTER → 2019-07-23 | Outpatient (CLI) | payer BC, MEDICARE ==
[~2019-07-23] MED LIST changes: +BENA40TA5 PO; -BENA40TA7 PO; +METF750T36 PO
[2019-07-23 10:18] LABS: HEMATOCRIT 43.7 % (36.0-47.0); HEMOGLOBIN 13.9 g/dl (12.0-15.5); MEAN CORPUSCULAR HEMOGLOBIN 29.8 pg (27.0-33.0); MEAN CORPUSCULAR HGB CONC 31.8 g/dl (32.0-36.5); MEAN CORPUSCULAR VOLUME 93.8 fl (80.0-96.0); PLATELET COUNT, AUTOMATED 245 10^3/uL (150-450); RED BLOOD COUNT 4.66 10^6/uL (4.00-5.40); WHITE BLOOD COUNT 7.6 10^3/uL (4.0-10.0)
[2019-07-23 10:37] LABS: HEMOGLOBIN A1c 6.2 %
[2019-07-23 10:54] LABS: ALBUMIN 3.9 GM/DL (3.2-5.2); ALT/SGPT 28 U/L (12-78); BILIRUBIN,TOTAL 0.5 MG/DL (0.2-1.0); BLOOD UREA NITROGEN 19 MG/DL (7-18); CALCIUM LEVEL 9.4 MG/DL (8.8-10.2); CARBON DIOXIDE LEVEL 31 MEQ/L (21-32); CHLORIDE LEVEL 105 MEQ/L (98-107); CHOLESTEROL LEVEL 151 MG/DL (<200); CHOLESTEROL RISK RATIO 3.511 (<5); CREATININE FOR GFR 0.77 MG/DL (0.55-1.30); GLOMERULAR FILTRATION RATE > 60.0 (>45); GLUCOSE, FASTING 84 MG/DL (70-100); HDL CHOLESTEROL 43 MG/DL (>40); LDL CHOLESTEROL 78 MG/DL (<100); NON-HDL-C 108 MG/DL; POTASSIUM SERUM 4.9 MEQ/L (3.5-5.1); SODIUM LEVEL 142 MEQ/L (136-145); TOTAL PROTEIN 7.1 GM/DL (6.4-8.2); TRIGLYCERIDES LEVEL 149 MG/DL (<150)
[2019-07-23 11:02] LABS: MALB URINE SIEMENS 31.3 MG/L; MAU/CREAT RATIO 25.6 MCG/MG (0.0-30.0)
[2019-07-23 11:05] LABS: TOTAL 25(OH) VITAMIN D 36.7 NG/ML (30.0-100.0)
== END ==
LOC: M PLALAB 08:19
PROVIDERS: ATTEND Internal Medicine
DX: G47.33 Obstructive sleep apnea (adult) (pediatric) (principal); I10 Essential (primary) hypertension; E11.9 Type 2 diabetes mellitus without complications; E78.00 Pure hypercholesterolemia, unspecified; M85.80 Other specified disorders of bone density and structure, unspecified site; E03.9 Hypothyroidism, unspecified

== ENCOUNTER 2019-08-20 10:06 | Day surgery (SDC) | payer BC, MEDICARE ==
[~2019-08-20] VITALS: Ht 160 cm; Wt 83.5 kg
[~2019-08-20 10:06] MED LIST changes: +LIDOCAINE 2% INJ 100 MG/5 ML SDV (FOR ANES.) As Ordered ONE; +NS 1,000 ML IV ONE; +fentaNYL 100 MCG/2 ML INJECTION (J3010) As Ordered ONE; +propofoL 500 MG/50 ML VIAL As Ordered ONE
[2019-08-20] MEDS ORDERED: ONDANSETRON 4 MG ORAL DISINTEGRATING TAB (Q0162 PER 1MG) As Ordered ONE (10:17)
[2019-08-20] MEDS ORDERED: propofoL 200 MG/20 ML VIAL As Ordered ONE (10:38)
[2019-08-20] MEDS ORDERED: ONDANSETRON 4 MG ORAL DISINTEGRATING TAB (Q0162 PER 1MG) SL ONE (11:30)
[2019-08-20] MEDS ORDERED: NS 1,000 ML IV ONE (12:00)
[2019-08-20] MEDS ORDERED: fentaNYL 100 MCG/2 ML INJECTION (J3010) As Ordered ONE (12:16)
--- NOTE | 2019-08-20 13:00 | ROOR ---
Patient Name: Debbie Infante Procedure Date: 08/20/2019 12:13 PM Date of : 1955 Age: 64 Room: [facility] Gender: Female Note Status: Finalized Procedure: Upper GI endoscopy Indications: Epigastric abdominal pain Providers: Uri Lara MD Referring MD: Jigar Khoury MD Requesting Provider: Medicines: Monitored Anesthesia Care Complications: No immediate complications. Procedure: Pre-Anesthesia Assessment: - Prior to the procedure, a History and Physical was performed, and patient medications and allergies were reviewed. The patient is competent. The risks and benefits of the procedure and the sedation options and risks were discussed with the patient. All questions were answered and informed consent was obtained. Patient identification and proposed procedure were verified by the physician, the nurse and the anesthesiologist in the procedure room. Mental Status Examination: alert and oriented. Airway Examination: normal oropharyngeal airway and neck mobility. Respiratory Examination: clear to auscultation. CV Examination: normal. Prophylactic Antibiotics: The patient does not require prophylactic antibiotics. Prior Anticoagulants: The patient has taken no previous anticoagulant or antiplatelet agents. ASA Grade Assessment: II - A patient with mild systemic disease. After reviewing the risks and benefits, the patient was deemed in satisfactory condition to undergo the procedure. The anesthesia plan was to use monitored anesthesia care (MAC). Immediately prior to administration of medications, the patient was re-assessed for adequacy to receive sedatives. The heart rate, respiratory rate, oxygen saturations, blood pressure, adequacy of pulmonary ventilation, and response to care were monitored throughout the procedure. The physical status of the patient was re-assessed after the procedure. The Endoscope was introduced through the mouth, and advanced to the second part of duodenum. The upper GI endoscopy was accomplished without difficulty. The patient tolerated the procedure well. Findings: The Z-line was regular and was found in the distal esophagus. Diffuse severe inflammation characterized by erythema, friability, granularity, linear erosions and shallow ulcerations was found in the gastric antrum. Biopsies were taken with a cold forceps for Helicobacter pylori testing. Biopsies were taken with a cold forceps for histology. Verification of patient identification for the specimen was done by the physician and nurse using the patient's name, date and medical record number. Estimated blood loss was minimal. Patchy moderately erythematous mucosa without active bleeding and with no stigmata of bleeding was found in the duodenal bulb. Biopsies for histology were taken with a cold forceps for evaluation of celiac disease. Impression: - Z-line regular, in the distal esophagus. - Gastritis. Biopsied. - Erythematous duodenopathy. Biopsied. Recommendation: - Patient has a contact number available for emergencies. The signs and symptoms of potential delayed complications were discussed with the patient. Return to normal activities tomorrow. Written discharge instructions were provided to the patient. - Resume previous diet. - No ibuprofen, naproxen, or other non-steroidal anti-inflammatory drugs. - Use Protonix (pantoprazole) 40 mg PO twice daily - to be taken in morning (1/2 hour before breakfast) and at bedtime ( atleast 3 hours after last meal) for 8 weeks. - Await pathology results. - If Biopsy shows H. pylori will need therapy with antibiotic course.. - Telephone GI clinic for pathology results in 2 weeks. - Return to primary care physician. Uri Lara MD Uri Lara MD 08/20/2019 12:59:55 PM Electronically signed by Uri Lara MD Number of Addenda: 0 Note Initiated On: 08/20/2019 12:13 PM Estimated Blood Loss: Estimated blood loss was minimal.
--- NOTE | 2019-08-20 13:05 | ROOR ---
Patient Name: Debbie Infante Procedure Date: 08/20/2019 12:14 PM Date of : 1955 Age: 64 Room: [facility] Gender: Female Note Status: Finalized Procedure: Colonoscopy Indications: Positive Cologuard test Providers: Uri Lara MD Referring MD: Jigar Khoury MD Requesting Provider: Medicines: Monitored Anesthesia Care Complications: No immediate complications. Procedure: Pre-Anesthesia Assessment: - Prior to the procedure, a History and Physical was performed, and patient medications and allergies were reviewed. The patient is competent. The risks and benefits of the procedure and the sedation options and risks were discussed with the patient. All questions were answered and informed consent was obtained. Patient identification and proposed procedure were verified by the physician, the nurse and the anesthesiologist in the procedure room. Mental Status Examination: alert and oriented. Airway Examination: normal oropharyngeal airway and neck mobility. Respiratory Examination: clear to auscultation. CV Examination: normal. Prophylactic Antibiotics: The patient does not require prophylactic antibiotics. Prior Anticoagulants: The patient has taken no previous anticoagulant or antiplatelet agents. ASA Grade Assessment: II - A patient with mild systemic disease. After reviewing the risks and benefits, the patient was deemed in satisfactory condition to undergo the procedure. The anesthesia plan was to use monitored anesthesia care (MAC). Immediately prior to administration of medications, the patient was re-assessed for adequacy to receive sedatives. The heart rate, respiratory rate, oxygen saturations, blood pressure, adequacy of pulmonary ventilation, and response to care were monitored throughout the procedure. The physical status of the patient was re-assessed after the procedure. The Colonoscope was introduced through the anus and advanced to the terminal ileum, with identification of the appendiceal orifice and IC valve. The colonoscopy was performed without difficulty. The patient tolerated the procedure well. The quality of the bowel preparation was adequate to identify polyps 6 mm and larger in size and fair. The terminal ileum, ileocecal valve, appendiceal orifice, and rectum were photographed. Scope insertion time was 3 minutes. Scope withdrawal time was 9 minutes. The total duration of the procedure was 12 minutes. Findings: The perianal and digital rectal examinations were normal. The terminal ileum appeared normal. Four sessile polyps were found in the descending colon. The polyps were 4 to 8 mm in size. These polyps were removed with a hot snare. Resection and retrieval were complete. Verification of patient identification for the specimen was done by the physician and nurse using the patient's name, date and medical record number. Estimated blood loss was minimal. Multiple small and large-mouthed diverticula were found in the sigmoid colon. There was no evidence of diverticular bleeding. Non-bleeding external and internal hemorrhoids were found during retroflexion. The hemorrhoids were small. Retroflexion in the rectum was not performed due to anatomy. Impression: - Preparation of the colon was fair. - The examined portion of the ileum was normal. - Four 4 to 8 mm polyps in the descending colon, removed with a hot snare. Resected and retrieved. - Moderate diverticulosis in the sigmoid colon. There was no evidence of diverticular bleeding. - Non-bleeding external and internal hemorrhoids. Recommendation: - Patient has a contact number available for emergencies. The signs and symptoms of potential delayed complications were discussed with the patient. Return to normal activities tomorrow. Written discharge instructions were provided to the patient. - High fiber diet. - Continue present medications. - Await pathology results. - Repeat colonoscopy in 3 - 5 years for surveillance based on pathology results. - Telephone GI clinic for pathology results in 2 weeks. - Return to primary care physician. Uri Lara MD Uri Lara MD 08/20/2019 1:05:15 PM Electronically signed by Uri Lara MD Number of Addenda: 0 Note Initiated On: 08/20/2019 12:14 PM Estimated Blood Loss: Estimated blood loss was minimal.
[2019-08-20 13:33] VITALS: BP 149/83
== END 2019-08-20 13:35 | disposition home or self-care (01) ==
LOC: M OPP 10:06
PROVIDERS: ATTEND Internal Medicine Gastroenterology
DX: K64.8 Other hemorrhoids (principal); K63.5 Polyp of colon; K57.30 Diverticulosis of large intestine without perforation or abscess without bleeding; R19.5 Other fecal abnormalities; K29.70 Gastritis, unspecified, without bleeding; K31.89 Other diseases of stomach and duodenum; R10.13 Epigastric pain; R22.2 Localized swelling, mass and lump, trunk; E11.51 Type 2 diabetes mellitus with diabetic peripheral angiopathy without gangrene; I10 Essential (primary) hypertension; E78.5 Hyperlipidemia, unspecified; Z79.82 Long term (current) use of aspirin; Z79.84 Long term (current) use of oral hypoglycemic drugs; Z79.899 Other long term (current) drug therapy; Z91.040 Latex allergy status; Z87.891 Personal history of nicotine dependence; Z95.5 Presence of coronary angioplasty implant and graft
CPT/HCPCS: 43239; 45385; 88305; J3010

== ENCOUNTER → 2019-12-08 | Outpatient (CLI) | payer BC, MEDICARE ==
[~2019-12-08] MED LIST changes: -LIDOCAINE 2% INJ 100 MG/5 ML SDV (FOR ANES.) As Ordered ONE; -NS 1,000 ML IV ONE; -fentaNYL 100 MCG/2 ML INJECTION (J3010) As Ordered ONE; -propofoL 500 MG/50 ML VIAL As Ordered ONE
--- NOTE | 2019-12-08 13:36 | REP ---
CT ABDOMEN and pelvis without contrast: CT abdomen and pelvis performed without oral or IV contrast. Sagittal and coronal reconstruction images are performed. The visualized lung bases demonstrate minor fibrotic change. The liver, gallbladder, spleen, adrenals, pancreas and kidneys are grossly unremarkable. I see no renal, ureteral or bladder calculus and there is no evidence of hydroureteronephrosis. There is moderate atherosclerotic calcification of the abdominal aorta with no aneurysm. There is no adenopathy. Some scattered subcentimeter mesenteric lymph nodes appear similar to a prior CT of the chest 09/29/2017. There is no free air or free fluid. There is no bowel wall thickening. The appendix is normal. The patient has had a hysterectomy. No pelvic mass is seen. The ovaries appear grossly unremarkable. Urinary bladder is mildly distended and grossly unremarkable. There are degenerative changes of the spine. IMPRESSION: No acute abnormalities. No renal, ureteral or bladder calculus and no hydroureteronephrosis. Electronically Signed by Kevin Voss MD 12/09/2019 11:21 A
[2019-12-08 15:20] LABS: APPEARANCE, URINE CLOUDY (CLEAR); BACTERIA, URINE AUTO 1+ (NEGATIVE); BILIRUBIN, URINE AUTO NEGATIVE (NEGATIVE); BLOOD, URINE BLOOD 3+ (NEGATIVE); COLOR, URINE AMBER (YELLOW); GLUCOSE, URINE (UA) AUTO NEGATIVE (NEGATIVE); KETONE, URINE AUTO NEGATIVE (NEGATIVE); LEUKOCYTE ESTERASE, URINE AUTO 2+ (NEGATIVE); MUCUS, URINE SMALL (NEGATIVE); NITRITE, URINE AUTO NEGATIVE (NEGATIVE); PROTEIN, URINE AUTO 1+ mg/dL (NEGATIVE); RBC, URINE AUTO 19 /HPF (0-3); SPECIFIC GRAVITY URINE AUTO 1.018 (1.002-1.035); SQUAMOUS EPITHELIAL CELL UR AU 3 /HPF (0-6); WBC, URINE AUTO 33 /HPF (0-3)
== END ==
LOC: M RAD 11:52
PROVIDERS: ATTEND Physician Assistant Medical
DX: R30.0 Dysuria (principal)

== ENCOUNTER → 2020-01-28 | Outpatient (REF) | payer BC, MEDICARE ==
[~2020-01-28] MED LIST changes: -ASPI81TA85 PO; +ASPI81TA86 PO
[2020-04-17 15:58] LABS: GLUCOSE, FASTING SEE SEPARATE REPORT
== END ==
LOC: M SFHCPLAZ 09:11
PROVIDERS: ATTEND Internal Medicine
DX: E78.00 Pure hypercholesterolemia, unspecified (principal); I10 Essential (primary) hypertension

== ENCOUNTER → 2020-08-15 | Outpatient (REF) | payer BC, MEDICARE ==
[2020-08-15 13:45] LABS: EOS # 0.1 10^3/uL (0.0-0.5); EOS % 1.1 % (0.0-3.0); HEMATOCRIT 42.5 % (36.0-47.0); HEMOGLOBIN 13.6 g/dl (12.0-15.5); LYMPH # 1.9 10^3/uL (1.5-5.0); LYMPH % 35.9 % (24.0-44.0); MEAN CORPUSCULAR HEMOGLOBIN 30.2 pg (27.0-33.0); MEAN CORPUSCULAR VOLUME 94.2 fl (80.0-96.0); MONO # 0.6 10^3/uL (0.0-0.8); MONO % 10.5 % (2.0-8.0); NEUTROPHILS # 2.7 10^3/uL (1.5-8.5); NEUTROPHILS % 52.3 % (36.0-66.0); PLATELET COUNT, AUTOMATED 235 10^3/uL (150-450); RED BLOOD COUNT 4.51 10^6/uL (4.00-5.40); WHITE BLOOD COUNT 5.2 10^3/uL (4.0-10.0)
[2020-08-15 13:58] LABS: ALBUMIN 3.8 GM/DL (3.2-5.2); ALT/SGPT 32 U/L (12-78); BILIRUBIN,TOTAL 0.5 MG/DL (0.2-1.0); BLOOD UREA NITROGEN 23 MG/DL (7-18); CALCIUM LEVEL 9.1 MG/DL (8.8-10.2); CARBON DIOXIDE LEVEL 31 MEQ/L (21-32); CHLORIDE LEVEL 105 MEQ/L (98-107); CHOLESTEROL LEVEL 156 MG/DL (<200); CHOLESTEROL RISK RATIO 3.466 (<5); CREATININE FOR GFR 0.92 MG/DL (0.55-1.30); GLOMERULAR FILTRATION RATE > 60.0 (>45); GLUCOSE, FASTING 104 MG/DL (70-100); HDL CHOLESTEROL 45 MG/DL (>40); LDL CHOLESTEROL 76 MG/DL (<100); MAGNESIUM LEVEL 1.9 MG/DL (1.8-2.4); NON-HDL-C 111 MG/DL; POTASSIUM SERUM 4.9 MEQ/L (3.5-5.1); SODIUM LEVEL 142 MEQ/L (136-145); THYROID STIMULATING HORMONE 0.441 uIU/ML (0.358-3.740); TOTAL PROTEIN 6.9 GM/DL (6.4-8.2); TRIGLYCERIDES LEVEL 173 MG/DL (<150)
[2020-08-15 14:04] LABS: HEMOGLOBIN A1c 5.7 %
[2020-08-15 14:22] LABS: MALB URINE SIEMENS 29.4 MG/L; MAU/CREAT RATIO 20.4 MCG/MG (0.0-30.0)
== END ==
LOC: M SFHCPLAZ 13:30
PROVIDERS: ATTEND Internal Medicine
DX: E11.9 Type 2 diabetes mellitus without complications (principal); I10 Essential (primary) hypertension; G47.33 Obstructive sleep apnea (adult) (pediatric); E78.00 Pure hypercholesterolemia, unspecified

== ENCOUNTER → 2020-11-24 | Outpatient (CLI) | payer BC ==
--- NOTE | 2020-11-24 16:02 | REPPI ---
INDICATION: M25.511 ACUTE PAIN OF RIGHT SHOULDER S49.91XA RIGHT SHOULDER COMPARISON: None. TECHNIQUE: Internal rotation, external rotation, and Y view. FINDINGS: Very mild cortical irregularity at the acromioclavicular joint is appreciated along with subtle blunting to the calcified glenoid rim and small inferior spur. Humeral head is normal. Subacromial space is normal. Surrounding soft tissues are normal. No acute fracture or dislocation. IMPRESSION: Mild arthritic changes. No acute fracture or dislocation appreciated. <Electronically signed by Nba Meeks > 11/24/20 [id number]
== END ==
LOC: M PLAIMG 14:59
PROVIDERS: ATTEND Physician Assistant
DX: M25.511 Pain in right shoulder (principal); S49.91XA Unspecified injury of right shoulder and upper arm, initial encounter; X58.XXXA Exposure to other specified factors, initial encounter; Y92.89 Other specified places as the place of occurrence of the external cause; Y93.9 Activity, unspecified; Y99.9 Unspecified external cause status

== ENCOUNTER → 2020-12-22 | Outpatient (CLI) | payer BC, MEDICARE ==
--- NOTE | 2020-12-22 11:12 | REPMRS ---
Patient History The patient states she has not had a clinical breast exam in over a year. No known family history of cancer. No breast complaints today Patient signed the MRS sheet No covid vaccine Priors on PACS Patient Identification Verified Digital Woman Screen Mammo: December 22, 2020 - Exam #: [id number] Bilateral CC and MLO view(s) were taken. Technologist: Christianne Marin, Technologist Prior study comparison: October 08, 2016, digital woman screen mammo performed at [facility], [place]. May 13, 2014, bilateral bilat screen digital mammo, performed at [facility] ([facility]). April 23, 2013, bilateral bilat screen digital mammo, performed at [facility] ([facility]). FINDINGS: There are scattered fibroglandular densities. The Volpara volumetric breast density category is:B. There has been no change in the appearance of the mammogram from the prior studies. There is a mild amount of scattered fibroglandular density which is fairly symmetric. There is no interval development of dominant mass, architectural distortion, or grouped microcalcification suggestive of malignancy. 3-D tomosynthesis shows no additional findings. Assessment: BI-RADS/ACR category 1 mammogram. Negative Mammogram. Recommendation Routine screening mammogram of both breasts in 1 year (for women over age 40). This patient's [facility] Lifetime Breast Cancer Risk is estimated at 4.0 %. This mammogram was interpreted with the aid of an FDA-approved computer-aided dectection system. Electronically Signed By: Hi Granados MD 12/22/20 [id number]
== END ==
LOC: M WHC 09:51
PROVIDERS: ATTEND Internal Medicine
DX: Z12.31 Encounter for screening mammogram for malignant neoplasm of breast (principal)

== ENCOUNTER → 2020-12-22 | Outpatient (CLI) | payer BC, MEDICARE ==
--- NOTE | 2020-12-25 08:34 | REP ---
INDICATION: ACUTE PAIN OF RT SHOULDER DECREASED ROM. COMPARISON: Comparison radiographs of the right shoulder are from November 24, 2020.. TECHNIQUE: Axial, oblique coronal, and oblique sagittal imaging planes utilized. T1 and T2 weighted scans are included with without fat saturation in the usual fashion. FINDINGS: Cortical and medullary bone signal intensity are normal. There is osteoarthritic hypertrophy of the acromioclavicular joint moderate in degree. Subcortical cysts are seen in the distal clavicle and acromion process. There is mild inferolateral spurring the acromion process. There is a small subacromial subdeltoid bursal effusion visible on T2 weighted scans. A small glenohumeral effusion is seen. The glenohumeral articulation is normally aligned. There is some subcortical cyst formation in the posterior glenoid and there is evidence of fraying of the posterior glenoid articular labrum. The superior labrum shows heterogeneous signal intensity as well indicating fraying in this location. There is biceps tendinosis. There is focal T2 hyperintensity at the distal insertion of the supraspinatus tendon anteriorly consistent with a focal supraspinatus cuff tear, likely partial thickness. There is moderate tendinosis in the remainder of the supraspinatus tendon. The subscapularis and the infraspinatus tendons are unremarkable. On oblique coronal scans, there is early osteoarthritic inferior marginal glenohumeral spurring. There are moderate chondromalacia changes. 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 Acromion process spurring. Subacromial subdeltoid bursal fluid. Focal tear in the distal supraspinatus tendon insertion anteriorly. Probably partial thickness. Fraying of the posterior and superior glenoid labral cartilage with subcortical cyst formation in the posterior glenoid. Supraspinatus and biceps tendinosis. <Electronically signed by Hi Granados > 12/25/20 [id number]
== END ==
LOC: M RAD 17:55
PROVIDERS: ATTEND Physician Assistant
DX: M25.511 Pain in right shoulder (principal)

== ENCOUNTER → 2021-02-09 | Outpatient (CLI) | payer BC, MEDICARE ==
[2021-02-09 10:59] LABS: ALBUMIN 3.8 GM/DL (3.2-5.2); ALT/SGPT 29 U/L (12-78); BILIRUBIN,TOTAL 0.5 MG/DL (0.2-1.0); BLOOD UREA NITROGEN 19 MG/DL (7-18); CALCIUM LEVEL 8.5 MG/DL (8.8-10.2); CARBON DIOXIDE LEVEL 29 MEQ/L (21-32); CHLORIDE LEVEL 108 MEQ/L (98-107); CHOLESTEROL LEVEL 169 MG/DL (<200); GLOMERULAR FILTRATION RATE > 60.0 (>45); GLUCOSE, FASTING 103 MG/DL (70-100); HDL CHOLESTEROL 44 MG/DL (>40); LDL CHOLESTEROL 94 MG/DL (<100); NON-HDL-C 125 MG/DL; POTASSIUM SERUM 4.4 MEQ/L (3.5-5.1); SODIUM LEVEL 140 MEQ/L (136-145); TOTAL PROTEIN 6.9 GM/DL (6.4-8.2); TRIGLYCERIDES LEVEL 154 MG/DL (<150)
== END ==
LOC: M PLALAB 09:25
PROVIDERS: ATTEND Internal Medicine
DX: E78.00 Pure hypercholesterolemia, unspecified (principal); E11.9 Type 2 diabetes mellitus without complications; I10 Essential (primary) hypertension; Z12.39 Encounter for other screening for malignant neoplasm of breast
CPT/HCPCS: 36415; 80053; 80061; 83036; G0472

== ENCOUNTER → 2021-08-14 | Outpatient (CLI) | payer BC, MEDICARE ==
[~2021-08-14] MED LIST changes: -BENA40TA5 PO; +BENA40TA84 PO
[2021-08-14 11:21] LABS: BASO % 0.1 % (0.0-1.0); EOS % 0.6 % (0.0-3.0); HEMATOCRIT 44.3 % (36.0-47.0); HEMOGLOBIN 14.4 g/dl (12.0-15.5); LYMPH % 28.6 % (24.0-44.0); MEAN CORPUSCULAR HEMOGLOBIN 30.8 pg (27.0-33.0); MEAN CORPUSCULAR HGB CONC 32.5 g/dl (32.0-36.5); MEAN CORPUSCULAR VOLUME 94.7 fl (80.0-96.0); MONO # 0.6 10^3/uL (0.0-0.8); MONO % 8.9 % (2.0-8.0); NEUTROPHILS # 4.3 10^3/uL (1.5-8.5); NEUTROPHILS % 61.7 % (36.0-66.0); PLATELET COUNT, AUTOMATED 224 10^3/uL (150-450); RED BLOOD COUNT 4.68 10^6/uL (4.00-5.40); WHITE BLOOD COUNT 6.9 10^3/uL (4.0-10.0)
[2021-08-14 12:02] LABS: CREATININE, URINE 88.7 MG/DL; MALB URINE SIEMENS 17.5 MG/L; MAU/CREAT RATIO 19.7 MCG/MG (0.0-30.0)
[2021-08-14 12:09] LABS: ALT/SGPT 26 U/L (12-78); BILIRUBIN,TOTAL 0.4 MG/DL (0.2-1.0); BLOOD UREA NITROGEN 18 MG/DL (7-18); CARBON DIOXIDE LEVEL 30 MEQ/L (21-32); CHLORIDE LEVEL 106 MEQ/L (98-107); CHOLESTEROL LEVEL 262 MG/DL (<200); CREATININE FOR GFR 0.83 MG/DL (0.55-1.30); GLOMERULAR FILTRATION RATE > 60.0 (>45); GLUCOSE, FASTING 95 MG/DL (70-100); HDL CHOLESTEROL 47 MG/DL (>40); HEMOGLOBIN A1c 5.7 %; POTASSIUM SERUM 5.1 MEQ/L (3.5-5.1); SODIUM LEVEL 141 MEQ/L (136-145); TRIGLYCERIDES LEVEL 248 MG/DL (<150)
[2021-08-14 12:10] LABS: ALBUMIN 3.9 GM/DL (3.2-5.2); CHOLESTEROL RISK RATIO 5.574 (<5); LDL CHOLESTEROL 165 MG/DL (<100); MAGNESIUM LEVEL 2.1 MG/DL (1.8-2.4); NON-HDL-C 215 MG/DL; TOTAL 25(OH) VITAMIN D 22.6 NG/ML (30.0-100.0); TOTAL PROTEIN 7.3 GM/DL (6.4-8.2)
== END ==
LOC: M PLALAB 08:49
PROVIDERS: ATTEND Internal Medicine
DX: E11.9 Type 2 diabetes mellitus without complications (principal); I10 Essential (primary) hypertension; E78.00 Pure hypercholesterolemia, unspecified; E03.9 Hypothyroidism, unspecified; E55.9 Vitamin D deficiency, unspecified; Z86.010 Personal history of colon polyps; Z79.899 Other long term (current) drug therapy

== ENCOUNTER → 2021-11-15 | Outpatient (CLI) | payer BC, MEDICARE | LOC: M RAD 10:46 | PROVIDERS: ATTEND Nurse Practitioner Family | DX: I65.23 Occlusion and stenosis of bilateral carotid arteries (principal) ==

== ENCOUNTER → 2022-02-12 | Outpatient (CLI) | payer BC, MEDICARE ==
[2022-02-12 12:14] LABS: ALBUMIN 3.6 GM/DL (3.2-5.2); ALT/SGPT 31 U/L (12-78); BILIRUBIN,TOTAL 0.4 MG/DL (0.2-1.0); BLOOD UREA NITROGEN 17 MG/DL (7-18); CALCIUM LEVEL 9.4 MG/DL (8.8-10.2); CARBON DIOXIDE LEVEL 29 MEQ/L (21-32); CHLORIDE LEVEL 108 MEQ/L (98-107); CHOLESTEROL LEVEL 162 MG/DL (<200); CHOLESTEROL RISK RATIO 3.375 (<5); CREATININE FOR GFR 0.83 MG/DL (0.55-1.30); GLOMERULAR FILTRATION RATE > 60.0 (>45); GLUCOSE, FASTING 100 MG/DL (70-100); HDL CHOLESTEROL 48 MG/DL (>40); LDL CHOLESTEROL 84 MG/DL (<100); MAGNESIUM LEVEL 2.1 MG/DL (1.8-2.4); NON-HDL-C 114 MG/DL; POTASSIUM SERUM 4.5 MEQ/L (3.5-5.1); SODIUM LEVEL 142 MEQ/L (136-145); TOTAL PROTEIN 6.9 GM/DL (6.4-8.2); TRIGLYCERIDES LEVEL 151 MG/DL (<150)
[2022-02-12 12:37] LABS: HEMOGLOBIN A1c 5.7 %
== END ==
LOC: M PLALAB 08:36
PROVIDERS: ATTEND Internal Medicine
DX: I10 Essential (primary) hypertension (principal); E11.9 Type 2 diabetes mellitus without complications; E78.00 Pure hypercholesterolemia, unspecified

== ENCOUNTER → 2022-09-12 | Outpatient (CLI) | payer BC, MEDICARE ==
[2022-09-12 11:29] LABS: HEMATOCRIT 42.5 % (36.0-47.0); HEMOGLOBIN 13.7 g/dl (12.0-15.5); MEAN CORPUSCULAR HEMOGLOBIN 30.6 pg (27.0-33.0); MEAN CORPUSCULAR HGB CONC 32.2 g/dl (32.0-36.5); MEAN CORPUSCULAR VOLUME 95.1 fl (80.0-96.0); PLATELET COUNT, AUTOMATED 213 10^3/uL (150-450); RED BLOOD COUNT 4.47 10^6/uL (4.00-5.40); WHITE BLOOD COUNT 5.1 10^3/uL (4.0-10.0)
[2022-09-12 11:49] LABS: CREATININE, URINE 108.6 MG/DL; MAU/CREAT RATIO 4.6 MCG/MG (0.0-30.0)
[2022-09-12 11:56] LABS: C REACTIVE PROTEIN QUANTITATIV < 0.40 MG/DL (<1.0)
[2022-09-12 12:03] LABS: ALBUMIN 3.9 G/DL (3.2-5.2); ALKALINE PHOSPHATASE 86 U/L (46-116); ALT/SGPT 23 U/L (7.0-40); AST/SGOT 19 U/L (<34); BILIRUBIN,TOTAL 0.6 MG/DL (0.3-1.2); BLOOD UREA NITROGEN 19 MG/DL (9-23); CALCIUM LEVEL 8.9 MG/DL (8.3-10.6); CARBON DIOXIDE LEVEL 29 MMOL/L (20-31); CHLORIDE LEVEL 108 MMOL/L (98-107); CHOLESTEROL LEVEL 129 MG/DL (<200); CHOLESTEROL RISK RATIO 3.05 (<5); FREE T4 1.32 NG/DL (0.89-1.76); GLOMERULAR FILTRATION RATE > 60.0 (>45); GLUCOSE, FASTING 90 MG/DL (74-106); HDL CHOLESTEROL 42.2 MG/DL (>40); LDL CHOLESTEROL 62.8 MG/DL (<100); NON-HDL-C 86.8 MG/DL; SODIUM LEVEL 141 MMOL/L (136-145); THYROID STIMULATING HORMONE 0.166 uIU/ML (0.55-4.78); TOTAL 25(OH) VITAMIN D 28.7 NG/ML (20.0-100.0); TOTAL PROTEIN 6.5 G/DL (5.7-8.2); TRIGLYCERIDES LEVEL 120 MG/DL (<150); VITAMIN B12 LEVEL 445 PG/ML (211-911)
[2022-09-12 12:11] LABS: HEMOGLOBIN A1c 5.8 % (4.0-6.0)
== END ==
LOC: M PLALAB 08:50
PROVIDERS: ATTEND Internal Medicine Hematology
DX: E78.00 Pure hypercholesterolemia, unspecified (principal)

== ENCOUNTER → 2023-04-09 | Outpatient (CLI) | payer BC, MEDICARE | LOC: M WHC 08:49 | PROVIDERS: ATTEND Internal Medicine Hematology | DX: Z12.31 Encounter for screening mammogram for malignant neoplasm of breast (principal) ==

== ENCOUNTER 2023-05-08 15:01 | Observation (INO) | payer BC, MEDICARE ==
[~2023-05-08] VITALS: Ht 157.5 cm; Wt 86.8 kg
[2023-05-08] MEDS ORDERED: EZET1TAB96 PO (15:24)
[2023-05-08] MEDS ORDERED: hydrALAZINE 20MG/ML 1ML VIAL IV STA (16:07)
[2023-05-08] MEDS ORDERED: ISOVUE-370 76% 100ML VIAL As Ordered ONE (16:23)
[2023-05-08 16:25] LABS: BASO % 0.1 % (0.0-1.0); EOS % 0.5 % (0.0-3.0); HEMATOCRIT 39.6 % (36.0-47.0); LYMPH # 1.9 10^3/uL (1.5-5.0); LYMPH % 24.8 % (24.0-44.0); MEAN CORPUSCULAR HEMOGLOBIN 31.3 pg (27.0-33.0); MEAN CORPUSCULAR HGB CONC 32.8 g/dl (32.0-36.5); MEAN CORPUSCULAR VOLUME 95.4 fl (80.0-96.0); MONO # 0.8 10^3/uL (0.0-0.8); NEUTROPHILS % 64.3 % (36.0-66.0); PLATELET COUNT, AUTOMATED 246 10^3/uL (150-450); RED BLOOD COUNT 4.15 10^6/uL (4.00-5.40); WHITE BLOOD COUNT 7.8 10^3/uL (4.0-10.0)
[2023-05-08 16:37] LABS: INR 0.95; PROTHROMBIN TIME 12.4 SECONDS (12.5-14.5)
[2023-05-08 16:38] LABS: PARTIAL THROMBOPLASTIN TIME 23.3 SECONDS (24.8-34.2)
[2023-05-08 16:50] LABS: ALBUMIN 4.1 G/DL (3.2-5.2); ALKALINE PHOSPHATASE 85 U/L (46-116); ALT/SGPT 33 U/L (7.0-40); AST/SGOT 23 U/L (<34); BILIRUBIN,DIRECT < 0.1 MG/DL (<0.4); BILIRUBIN,TOTAL 0.3 MG/DL (0.3-1.2); CK-MB VALUE MASS < 1.0 NG/ML (<3.6); TOTAL PROTEIN 6.9 G/DL (5.7-8.2)
[2023-05-08 16:56] LABS: CPK CREATINE PHOSPHOKINASE 108 U/L (34-145); MB/CK RELATIVE INDEX 0.92 (< OR =4)
[2023-05-08 17:33] LABS: RSV AMPLIFICATION NEGATIVE (NEGATIVE)
[2023-05-08] MEDS: hydrALAZINE 20MG/ML 1ML VIAL IV ONE ×2 (18:48→18:50)
[2023-05-08] MEDS ORDERED: ACETAMINOPHEN TAB 650MG DOSE (2X325MG) PO PRN (18:55)
[2023-05-08] MEDS ORDERED: MED REC IN PROGRESS XX SCH (19:00)
[2023-05-08] MEDS ORDERED: ASPI81TA26 PO (19:10)
[2023-05-08] MEDS ORDERED: DEXTROSE 50% 50ML SYRINGE IV PRN (19:15)
[2023-05-08] MEDS ORDERED: GLUCOSE 4GM CHEW TABLET PO PRN (19:15)
[2023-05-08] MEDS ORDERED: GLUCAGON INJ 1MG VIAL SC PRN (19:15)
[2023-05-08] MEDS ORDERED: EZET10TA21 PO (19:17)
[2023-05-08] MEDS ORDERED: SYNT88TA2 PO (19:19)
[2023-05-08] MEDS ORDERED: VENTAER INH (19:21)
[2023-05-08] MEDS ORDERED: HOME MED LIST COMPLETE! XX SCH (19:30)
[2023-05-08] MEDS ORDERED: traMADol 50 MG TAB PO PRN (19:35)
[2023-05-08] MEDS ORDERED: ALBUTEROL 90 MCG/ACT 8GM HFA INHALER INH PRN (19:35)
[2023-05-08] MEDS: METOPROLOL TART 25 MG TABLET PO SCH (20:47)
[2023-05-08] MEDS ORDERED: INSULIN LISPRO (NovoLOG) PER UNIT SC SCH (21:00)
[2023-05-08 22:15] VITALS: BP 166/82; TEMP 98.1; O2SAT 99
[2023-05-08] MEDS ORDERED: FIORICET TAB PO PRN (23:10)
[2023-05-09] VITALS (8 sets, daily range): BP systolic 119–144; BP diastolic 68–81; TEMP 97–97.9; O2SAT 97–99
[2023-05-09 06:00] LABS: HEMATOCRIT 39.8 % (36.0-47.0); HEMOGLOBIN 13.1 g/dl (12.0-15.5); MEAN CORPUSCULAR HEMOGLOBIN 30.9 pg (27.0-33.0); MEAN CORPUSCULAR HGB CONC 32.9 g/dl (32.0-36.5); MEAN CORPUSCULAR VOLUME 93.9 fl (80.0-96.0); PLATELET COUNT, AUTOMATED 231 10^3/uL (150-450); RED BLOOD COUNT 4.24 10^6/uL (4.00-5.40); WHITE BLOOD COUNT 6.4 10^3/uL (4.0-10.0)
[2023-05-09] MEDS ORDERED: LEVOTHYROXINE 88MCG TABLET (0.088 MG) PO SCH (06:00)
[2023-05-09 06:29] LABS: BLOOD UREA NITROGEN 14 MG/DL (9-23); CALCIUM LEVEL 9.1 MG/DL (8.3-10.6); CARBON DIOXIDE LEVEL 28 MMOL/L (20-31); CHLORIDE LEVEL 106 MMOL/L (98-107); CREATININE FOR GFR 0.77 MG/DL (0.55-1.30); GLOMERULAR FILTRATION RATE > 60.0 (>39); GLUCOSE, FASTING 94 MG/DL (74-106); POTASSIUM SERUM 3.9 MMOL/L (3.5-5.1); SODIUM LEVEL 142 MMOL/L (136-145)
[2023-05-09] MEDS: INSULIN LISPRO (NovoLOG) PER UNIT SC SCH ×2 (07:30→12:00)
[2023-05-09] MEDS: METOPROLOL TART 25 MG TABLET PO SCH (08:50)
[2023-05-09] MEDS ORDERED: BENAZEPRIL 20 MG TAB PO SCH (09:00)
[2023-05-09] MEDS ORDERED: ASPIRIN 81MG ENTERIC TABLET PO SCH (09:00)
[2023-05-09] MEDS ORDERED: ATORVASTATIN 20 MG TAB PO SCH (09:00)
[2023-05-09] MEDS ORDERED: EZETIMIBE 10MG TABLET (ZETIA) PO SCH (09:00)
[2023-05-09] MEDS ORDERED: amLODIPine 5 MG TAB PO SCH (09:00)
[2023-05-09] MEDS ORDERED: AMLO1TAB24 PO (11:13)
== END 2023-05-09 16:34 | disposition home or self-care (01) ==
LOC: M ED 15:01 → M ED INP 15:02 → ENRESERV 19:46 → M PCU 22:12
PROVIDERS: ADMIT Internal Medicine; ATTEND Internal Medicine
DX: I16.0 Hypertensive urgency (principal); R55 Syncope and collapse; I25.10 Atherosclerotic heart disease of native coronary artery without angina pectoris; Z98.61 Coronary angioplasty status; I10 Essential (primary) hypertension; E78.5 Hyperlipidemia, unspecified; E03.9 Hypothyroidism, unspecified; E11.9 Type 2 diabetes mellitus without complications; J44.9 Chronic obstructive pulmonary disease, unspecified; M54.50 Low back pain, unspecified; G47.33 Obstructive sleep apnea (adult) (pediatric); I44.7 Left bundle-branch block, unspecified; H93.13 Tinnitus, bilateral; Z79.82 Long term (current) use of aspirin; Z79.899 Other long term (current) drug therapy; Z91.041 Radiographic dye allergy status
CPT/HCPCS: 36415; 70450; 70496; 70498; 70551; 71045; 80047; 80048; 80076; 82550; 82553; 83735; 84484; 85025; 85027; 85610; 85730; 87631; 93005; 93041; 93306; 94760; 96374; 97161; 97530; 99285; J0360; Q9967

== ENCOUNTER → 2023-06-02 | Outpatient (CLI) | payer BC, MEDICARE ==
[~2023-06-02] MED LIST changes: +AMLO1TAB24 PO; +ASPI81TA26 PO; +EZET10TA21 PO; +EZET1TAB96 PO; +SYNT88TA2 PO; +VENTAER INH
[2023-06-02 14:21] LABS: HEMATOCRIT 41.5 % (36.0-47.0); HEMOGLOBIN 13.6 g/dl (12.0-15.5); MEAN CORPUSCULAR HEMOGLOBIN 31.2 pg (27.0-33.0); MEAN CORPUSCULAR HGB CONC 32.8 g/dl (32.0-36.5); MEAN CORPUSCULAR VOLUME 95.2 fl (80.0-96.0); PLATELET COUNT, AUTOMATED 271 10^3/uL (150-450); RED BLOOD COUNT 4.36 10^6/uL (4.00-5.40); WHITE BLOOD COUNT 6.8 10^3/uL (4.0-10.0)
[2023-06-02 14:41] LABS: ALKALINE PHOSPHATASE 83 U/L (46-116); ALT/SGPT 24 U/L (7.0-40); AST/SGOT 17 U/L (<34); BILIRUBIN,TOTAL 0.5 MG/DL (0.3-1.2); BLOOD UREA NITROGEN 17 MG/DL (9-23); CALCIUM LEVEL 9.3 MG/DL (8.3-10.6); CARBON DIOXIDE LEVEL 28 MMOL/L (20-31); CHLORIDE LEVEL 105 MMOL/L (98-107); CREATININE FOR GFR 0.81 MG/DL (0.55-1.30); FREE T4 1.28 NG/DL (0.89-1.76); GLOMERULAR FILTRATION RATE > 60.0 (>39); GLUCOSE, FASTING 107 MG/DL (74-106); POTASSIUM SERUM 5.3 MMOL/L (3.5-5.1); SODIUM LEVEL 139 MMOL/L (136-145); THYROID STIMULATING HORMONE 0.572 uIU/ML (0.55-4.78); VITAMIN B12 LEVEL 462 PG/ML (211-911)
[2023-06-02 15:45] LABS: HEMOGLOBIN A1c 5.5 % (4.0-6.0)
== END ==
LOC: M PLALAB 10:04
PROVIDERS: ATTEND Internal Medicine Hematology
DX: E03.9 Hypothyroidism, unspecified (principal); E11.9 Type 2 diabetes mellitus without complications

== ENCOUNTER → 2023-07-31 | Outpatient (CLI) | payer BC, MEDICARE ==
[2023-07-31 10:57] LABS: BLOOD UREA NITROGEN 17 MG/DL (9-23); CALCIUM LEVEL 9.4 MG/DL (8.3-10.6); CARBON DIOXIDE LEVEL 31 MMOL/L (20-31); CHLORIDE LEVEL 105 MMOL/L (98-107); CREATININE FOR GFR 0.87 MG/DL (0.55-1.30); GLOMERULAR FILTRATION RATE > 60.0 (>39); GLUCOSE, FASTING 106 MG/DL (74-106); POTASSIUM SERUM 5.2 MMOL/L (3.5-5.1); SODIUM LEVEL 139 MMOL/L (136-145)
== END ==
LOC: M PLALAB 09:05
PROVIDERS: ATTEND Physician Assistant
DX: I10 Essential (primary) hypertension (principal)

== ENCOUNTER → 2023-12-01 | Outpatient (CLI) | payer BC, MEDICARE ==
[2023-12-01 13:29] LABS: BASO % 0.2 % (0.0-1.0); EOS # 0.1 10^3/uL (0.0-0.5); EOS % 1.7 % (0.0-3.0); HEMATOCRIT 41.2 % (36.0-47.0); HEMOGLOBIN 13.4 g/dl (12.0-15.5); LYMPH # 1.6 10^3/uL (1.5-5.0); LYMPH % 30.6 % (24.0-44.0); MEAN CORPUSCULAR HEMOGLOBIN 31.1 pg (27.0-33.0); MEAN CORPUSCULAR HGB CONC 32.5 g/dl (32.0-36.5); MEAN CORPUSCULAR VOLUME 95.6 fl (80.0-96.0); MONO # 0.8 10^3/uL (0.0-0.8); MONO % 16.3 % (2.0-8.0); NEUTROPHILS # 2.6 10^3/uL (1.5-8.5); PLATELET COUNT, AUTOMATED 213 10^3/uL (150-450); RED BLOOD COUNT 4.31 10^6/uL (4.00-5.40); WHITE BLOOD COUNT 5.2 10^3/uL (4.0-10.0)
[2023-12-01 13:48] LABS: HEMOGLOBIN A1c 5.8 % (4.0-6.0)
[2023-12-01 14:09] LABS: BLOOD UREA NITROGEN 15 MG/DL (9-23); CALCIUM LEVEL 9.3 MG/DL (8.3-10.6); CARBON DIOXIDE LEVEL 30 MMOL/L (20-31); CHLORIDE LEVEL 104 MMOL/L (98-107); CREATININE FOR GFR 0.84 MG/DL (0.55-1.30); GLOMERULAR FILTRATION RATE > 60.0 (>39); GLUCOSE, FASTING 110 MG/DL (74-106); POTASSIUM SERUM 4.3 MMOL/L (3.5-5.1); SODIUM LEVEL 140 MMOL/L (136-145)
[2023-12-01 14:11] LABS: THYROID STIMULATING HORMONE 1.759 uIU/ML (0.55-4.78)
== END ==
LOC: M PLALAB 09:13
PROVIDERS: ATTEND Internal Medicine Hematology
DX: E03.9 Hypothyroidism, unspecified (principal); E11.9 Type 2 diabetes mellitus without complications; I10 Essential (primary) hypertension

== ENCOUNTER → 2024-06-01 | Outpatient (CLI) | payer BC, MEDICARE ==
[2024-06-01 13:49] LABS: CHOLESTEROL RISK RATIO 5.87 (<5); HDL CHOLESTEROL 43.9 MG/DL (>40); LDL CHOLESTEROL 152.1 MG/DL (<100); NON-HDL-C 214.1 MG/DL
[2024-06-01 13:51] LABS: HEMOGLOBIN A1c 5.9 % (4.0-6.0)
== END ==
LOC: M PLALAB 09:24
PROVIDERS: ATTEND Student in an Organized Health Care Education/Training Program
DX: E11.9 Type 2 diabetes mellitus without complications (principal)

== ENCOUNTER → 2024-07-26 | Outpatient (CLI) | payer BC, MEDICARE | LOC: M RAD 08:01 | PROVIDERS: ATTEND Student in an Organized Health Care Education/Training Program | DX: Z12.2 Encounter for screening for malignant neoplasm of respiratory organs (principal); F17.211 Nicotine dependence, cigarettes, in remission ==

== ENCOUNTER → 2024-08-27 | Outpatient (CLI) | payer BC, MEDICARE ==
[2024-08-27 11:42] LABS: CHOLESTEROL RISK RATIO 2.6 (<5); HDL CHOLESTEROL 54.6 MG/DL (>40); NON-HDL-C 87.4 MG/DL
== END ==
LOC: M PLALAB 08:44
PROVIDERS: ATTEND Internal Medicine Cardiovascular Disease
DX: E78.49 Other hyperlipidemia (principal)

== ENCOUNTER → 2024-08-27 | Outpatient (CLI) | payer BC, MEDICARE ==
[2024-08-27 11:23] LABS: ALBUMIN 4.2 G/DL (3.2-5.2); ALKALINE PHOSPHATASE 72 U/L (35-104); ALT/SGPT 28 U/L (7.0-40); AST/SGOT 21 U/L (<34); BILIRUBIN,TOTAL 0.4 MG/DL (0.3-1.2); BLOOD UREA NITROGEN 22 MG/DL (9-23); CALCIUM LEVEL 9.6 MG/DL (8.3-10.6); CARBON DIOXIDE LEVEL 29 MMOL/L (20-31); CHLORIDE LEVEL 105 MMOL/L (98-107); CREATININE FOR GFR 0.88 MG/DL (0.55-1.30); GLOMERULAR FILTRATION RATE > 60.0 (>39); GLUCOSE, FASTING 105 MG/DL (74-106); SODIUM LEVEL 142 MMOL/L (136-145); TOTAL PROTEIN 7.5 G/DL (5.7-8.2)
== END ==
LOC: M PLALAB 08:46
PROVIDERS: ATTEND Student in an Organized Health Care Education/Training Program
DX: M19.90 Unspecified osteoarthritis, unspecified site (principal)

== ENCOUNTER → 2025-01-25 | Outpatient (CLI) | payer BC, MEDICARE | LOC: M PLALAB 09:54 → M PLAIMG 09:54 | PROVIDERS: ATTEND Student in an Organized Health Care Education/Training Program | DX: M19.90 Unspecified osteoarthritis, unspecified site (principal) ==

== ENCOUNTER → 2025-03-25 | Outpatient (CLI) | payer BC, MEDICARE ==
[~2025-03-25] MED LIST changes: -EZET10TA21 PO; +EZET10TA57 PO
== END ==
LOC: M WHC 09:10
PROVIDERS: ATTEND Student in an Organized Health Care Education/Training Program
DX: Z12.31 Encounter for screening mammogram for malignant neoplasm of breast (principal); M85.80 Other specified disorders of bone density and structure, unspecified site; R92.323 Mammographic fibroglandular density, bilateral breasts

== ENCOUNTER → 2025-05-12 | Outpatient (CLI) | payer BC, MEDICARE | LOC: M PLALAB 13:22 | PROVIDERS: ATTEND Nurse Practitioner Family | DX: M51.16 Intervertebral disc disorders with radiculopathy, lumbar region (principal) ==

== ENCOUNTER → 2025-06-06 | Outpatient (CLI) | payer BC, MEDICARE ==
[2025-06-06 10:21] LABS: CHOLESTEROL LEVEL 104.0 MG/DL (<200); CHOLESTEROL RISK RATIO 2.47 (<5); LDL CHOLESTEROL 40.6 MG/DL (<100); NON-HDL-C 62.0 MG/DL; TRIGLYCERIDES LEVEL 107.0 MG/DL (<150)
[2025-06-06 11:20] LABS: ESTIMATED AVERAGE GLUCOSE 128.0 MG/DL (60-110)
== END ==
LOC: M PLALAB 08:26
PROVIDERS: ATTEND Student in an Organized Health Care Education/Training Program
DX: Z00.00 Encounter for general adult medical examination without abnormal findings (principal)